=== PATIENT | male | born 1945 | race African-American/Black ===

== ENCOUNTER 2017-03-12 07:03 | Emergency (ER) | payer OTHER ==
[~2017-03-12] VITALS: Ht 160 cm; Wt 69.0 kg
[~2017-03-12 07:03] MED LIST: ALBU1AER INH; ALBU6.7H INH; COMBAER INH; LIPI10TA PO; PRED50 PO; PRIN5TAB PO; STOO100C PO; VENTAER INH
[2017-03-12 07:11] VITALS: BP 185/94; PULSE 122; RESP 21; TEMP 98.2; O2SAT 95
[2017-03-12 07:14] VITALS: BP 185/94; PULSE 110; RESP 24; O2SAT 96
[2017-03-12] MEDS ORDERED: SODIUM CHLORIDE 0.9% FLUSH 10 ML FLUSH IVF PRN (07:15)
[2017-03-12] MEDS ORDERED: methylPREDNISolone SOD SUCC 125 MG/2 ML VIAL IVP ONE (07:15)
[2017-03-12] MEDS ORDERED: PRED5TAB PO (07:22)
[2017-03-12] MEDS ORDERED: LISI-519 PO (07:22)
[2017-03-12] MEDS ORDERED: FLUT1INH7 INH (07:22)
[2017-03-12] MEDS ORDERED: COLA100C3 PO (07:22)
[2017-03-12] MEDS ORDERED: ALBUAER3 INH (07:22)
--- NOTE | 2017-03-12 07:22 | PD ---
HPI Chief Complaint: Respiratory Distress Time Seen by Provider: 07:11 Travel History International Travel<30 days: No Contact w/Intl Traveler<30days: No Traveled to known affect area: No History of Present Illness HPI 71yo M with PMH of COPD on home O2 at night presents to the ED with c/o sob since last night. States he also had some midsternal chest tightness that is intermittent and nonradiating. +Occasional cough. Denies any fever, n/v, abdominal pain, focal weakness or numbness, history of PE/DVT. Pt given duonebs x3 with some improvement. As per EVAC, pt was wheezing. Pt has been here multiple times for COPD exacerbation and states he had been intubated once before. PFSH Past Medical History Arthritis: No Asthma: Yes Autoimmune Disease: No Blood Disorders: No Anxiety: No Depression: No Heart Rhythm Problems: No Cancer: No Cardiovascular Problems: Yes (due to copd) High Cholesterol: Yes Chemotherapy: No Chest Pain: No Congestive Heart Failure: No COPD: Yes Cerebrovascular Accident: No Diabetes: No Diminished Hearing: No Endocrine: No Gastrointestinal Disorders: No GERD: No Glaucoma: No Genitourinary: No Headaches: Yes Hepatitis: No Hiatal Hernia: No Hypertension: Yes Immune Disorder: No Implanted Vascular Access Dvce: No Kidney Stones: No Musculoskeletal: No Neurologic: Yes Psychiatric: No Reproductive: No Respiratory: Yes (COPD) Migraines: Yes Myocardial Infarction: No Radiation Therapy: No Renal Failure: No Seizures: No Sickle Cell Disease: No Sleep Apnea: No Thyroid Disease: No Ulcer: No PNEUMOCCOCAL Vaccine (Year): 2 Past Surgical History Abdominal Surgery: No AICD: No Appendectomy: No Arteriovenous Shunt: No Cardiac Surgery: No Cholecystectomy: No Ear Surgery: No Endocrine Surgery: No Eye Surgery: Yes (CATARACT REMOVAL) Genitourinary Surgery: No Gynecologic Surgery: No Insulin Pump: No Joint Replacement: No Neurologic Surgery: No Oral Surgery: No Pacemaker: No Thoracic Surgery: No Other Surgery: No Social History Alcohol Use: Yes (RARELY) Tobacco Use: No (QUIT 09/2012) Substance Use: No Allergies-Medications (Allergen,Severity, Reaction): Coded Allergies: No Known Allergies (Verified , 03/12/16) Reported Meds & Prescriptions Reported Meds & Active Scripts Active Reported Breo Ellipta Inh (Fluticasone/Vilanterol) 200-25 Mcg/Act Inh 1 Puff INH BID Use daily at the same time. Proair Hfa 8.5 GM Inh (Albuterol Sulfate) 90 Mcg/Act Aer 2 Puff INH Q4-6H PRN 108 mcg/actuation Colace (Docusate Sodium) 100 Mg Cap 100 Mg PO BID PRN Lisinopril 5 Mg Tab 5 Mg PO DAILY Prednisone 5 Mg Tab 5 Mg PO DAILY Review of Systems Except as stated in HPI: all other systems reviewed are Neg Physical Exam Narrative GENERAL: 71yo M in moderate distress. SKIN: Focused skin assessment warm/dry. HEAD: Atraumatic. Normocephalic. EYES: Pupils equal and round. No scleral icterus. No injection or drainage. ENT: No nasal bleeding or discharge. Mucous membranes pink and moist. NECK: Trachea midline. No JVD. CARDIOVASCULAR: Sinus tachycardia in the low 120s. RESPIRATORY: + accessory muscle use. Coarse breath sounds in lower lungs, left > right. GASTROINTESTINAL: Abdomen soft, non-tender, nondistended. MUSCULOSKELETAL: No obvious deformities. No clubbing. No cyanosis. No edema. No calf tenderness. NEUROLOGICAL: Awake and alert. No obvious cranial nerve deficits. Motor grossly within normal limits. Normal speech. PSYCHIATRIC: Appropriate mood and affect; insight and judgment normal. Data Data Last Documented VS Vital Signs Date Time Temp Pulse Resp B/P Pulse Ox O2 Delivery O2 Flow Rate FiO2 03/12/17 09:30 99 25 161/79 99 Nasal Cannula 2 03/12/17 07:11 98.2 Orders Complete Blood Count With Diff (03/12/17 07:11) Basic Metabolic Panel (Bmp) (03/12/17 07:11) B-Type Natriuretic Peptide (03/12/17 07:11) Act Partial Throm Time (Ptt) (03/12/17 07:11) Prothrombin Time / Inr (Pt) (03/12/17 07:11) Magnesium (Mg) (03/12/17 07:11) Ckmb (Isoenzyme) Profile (03/12/17 07:11) Troponin I (03/12/17 07:11) Arterial Blood Gas (Abg) (03/12/17 07:11) Blood Culture (03/12/17 07:11) Iv Access Insert/Monitor (03/12/17 07:11) Electrocardiogram (03/12/17 07:11) Ecg Monitoring (03/12/17 07:11) Oximetry (03/12/17 07:11) Oxygen Administration (03/12/17 07:11) Chest, Single Ap (03/12/17 07:11) Sodium Chloride 0.9% Flush (Ns Flush) (03/12/17 07:15) Methylprednisolone So Succ Inj (Solumedr (03/12/17 07:15) Albuterol Neb (Albuterol Neb) (03/12/17 07:15) Resp Bipap / Cpap Non Invas Vt (03/12/17 07:11) Lactic Acid Sepsis Protocol (03/12/17 07:11) CKMB (03/12/17 08:05) CKMB% (03/12/17 08:05) Labs Laboratory Tests Test 03/12/17 03/12/17 03/12/17 03/12/17 07:20 07:26 07:40 08:05 Blood Gas Puncture Site RT RADIAL Blood Gas Patient Temperature 98.6 Blood Gas HCO3 29 mmol/L Blood Gas Base Excess 3.5 mmol/L Blood Gas Oxygen Saturation 94 % Arterial Blood pH 7.36 Arterial Blood Partial 52 mmHg Pressure CO2 Arterial Blood Partial 78 mmHG Pressure O2 Arterial Blood Oxygen Content 19.8 Vol % Arterial Blood 0.6 % Carboxyhemoglobin Arterial Blood Methemoglobin 0.5 % Blood Gas Hemoglobin 15.0 G/DL Oxygen Delivery Device MASK Blood Gas Liter Flow 7 L/M White Blood Count 5.5 TH/MM3 Red Blood Count 5.40 MIL/MM3 Hemoglobin 14.9 GM/DL Hematocrit 44.8 % Mean Corpuscular Volume 82.9 FL Mean Corpuscular Hemoglobin 27.5 PG Mean Corpuscular Hemoglobin 33.2 % Concent Red Cell Distribution Width 16.5 % Platelet Count 216 TH/MM3 Mean Platelet Volume 8.3 FL Neutrophils (%) (Auto) 35.9 % Lymphocytes (%) (Auto) 46.8 % Monocytes (%) (Auto) 11.8 % Eosinophils (%) (Auto) 4.5 % Basophils (%) (Auto) 1.0 % Neutrophils # (Auto) 2.0 TH/MM3 Lymphocytes # (Auto) 2.6 TH/MM3 Monocytes # (Auto) 0.7 TH/MM3 Eosinophils # (Auto) 0.2 TH/MM3 Basophils # (Auto) 0.1 TH/MM3 CBC Comment DIFF FINAL Differential Comment B-Type Natriuretic Peptide 10 PG/ML Lactic Acid Level 1.3 mmol/L Sodium Level 143 MEQ/L Potassium Level 3.9 MEQ/L Chloride Level 106 MEQ/L Carbon Dioxide Level 33.1 MEQ/L Anion Gap 4 MEQ/L Blood Urea Nitrogen 9 MG/DL Creatinine 1.35 MG/DL Estimat Glomerular Filtration 63 ML/MIN Rate Random Glucose 176 MG/DL Calcium Level 8.5 MG/DL Magnesium Level 2.2 MG/DL Total Creatine Kinase 208 U/L Creatine Kinase MB 2.7 NG/ML Troponin I LESS THAN 0.02 NG/ML Test 03/12/17 08:11 Prothrombin Time 10.8 SEC Prothromb Time International 1.0 RATIO Ratio Activated Partial 27.3 SEC Thromboplast Time MDM Medical Decision Making Medical Screen Exam Complete: Yes Emergency Medical Condition: Yes Interpretation(s) EKG: Sinus tachycardia at 124bpm. Normal axis. LVH. +PVC. Diffuse ST segment depression and T wave inversion that is unchanged from previous EKG 2015. Laboratory Tests Test 03/12/17 03/12/17 03/12/17 03/12/17 07:20 07:26 07:40 08:05 Blood Gas Puncture Site RT RADIAL Blood Gas Patient Temperature 98.6 Blood Gas HCO3 29 mmol/L (22-26) Blood Gas Base Excess 3.5 mmol/L (-2-2) Blood Gas Oxygen Saturation 94 % (90-100) Arterial Blood pH 7.36 (7.380-7.420) Arterial Blood Partial 52 mmHg (38-42) Pressure CO2 Arterial Blood Partial 78 mmHG Pressure O2 (61-120) Arterial Blood Oxygen Content 19.8 Vol % (12.0-20.0) Arterial Blood 0.6 % (0-4) Carboxyhemoglobin Arterial Blood Methemoglobin 0.5 % (0-2) Blood Gas Hemoglobin 15.0 G/DL (12.0-16.0) Oxygen Delivery Device MASK Blood Gas Liter Flow 7 L/M White Blood Count 5.5 TH/MM3 (4.0-11.0) Red Blood Count 5.40 MIL/MM3 (4.50-5.90) Hemoglobin 14.9 GM/DL (13.0-17.0) Hematocrit 44.8 % (39.0-51.0) Mean Corpuscular Volume 82.9 FL (80.0-100.0) Mean Corpuscular Hemoglobin 27.5 PG (27.0-34.0) Mean Corpuscular Hemoglobin 33.2 % Concent (32.0-36.0) Red Cell Distribution Width 16.5 % (11.6-17.2) Platelet Count 216 TH/MM3 (150-450) Mean Platelet Volume 8.3 FL (7.0-11.0) Neutrophils (%) (Auto) 35.9 % (16.0-70.0) Lymphocytes (%) (Auto) 46.8 % (9.0-44.0) Monocytes (%) (Auto) 11.8 % (0.0-8.0) Eosinophils (%) (Auto) 4.5 % (0.0-4.0) Basophils (%) (Auto) 1.0 % (0.0-2.0) Neutrophils # (Auto) 2.0 TH/MM3 (1.8-7.7) Lymphocytes # (Auto) 2.6 TH/MM3 (1.0-4.8) Monocytes # (Auto) 0.7 TH/MM3 (0-0.9) Eosinophils # (Auto) 0.2 TH/MM3 (0-0.4) Basophils # (Auto) 0.1 TH/MM3 (0-0.2) CBC Comment DIFF FINAL Differential Comment B-Type Natriuretic Peptide 10 PG/ML (0-100) Lactic Acid Level 1.3 mmol/L (0.4-2.0) Sodium Level 143 MEQ/L (136-145) Potassium Level 3.9 MEQ/L (3.5-5.1) Chloride Level 106 MEQ/L (98-107) Carbon Dioxide Level 33.1 MEQ/L (21.0-32.0) Anion Gap 4 MEQ/L (5-15) Blood Urea Nitrogen 9 MG/DL (7-18) Creatinine 1.35 MG/DL (0.60-1.30) Estimat Glomerular Filtration 63 ML/MIN (>89) Rate Random Glucose 176 MG/DL (74-106) Calcium Level 8.5 MG/DL (8.5-10.1) Magnesium Level 2.2 MG/DL (1.5-2.5) Total Creatine Kinase 208 U/L (39-308) Creatine Kinase MB 2.7 NG/ML (0.5-3.6) Troponin I LESS THAN 0.02 NG/ML (0.02-0.05) Test 03/12/17 08:11 Prothrombin Time 10.8 SEC (9.8-11.6) Prothromb Time International 1.0 RATIO Ratio Activated Partial 27.3 SEC Thromboplast Time (24.3-30.1) Last Impressions Chest X-Ray 03/12/17 0711 Signed Impressions: Service Date/Time: February 07:57 - CONCLUSION: No acute cardiopulmonary disease. Edmundo Mtz MD Differential Diagnosis COPD exacerbation vs. pneumonia vs. ACS Narrative Course 71yo M with COPD here with sob. Pt initially was tachypneic so BIPAP was ordered. However, pt improved after nebulizer and did not need BIPAP. Pt given albuterol neb x3 and methylprednisolone 125mg IV. Labs reviewed, no leukocytosis. Creatinine mildly increased at 1.35. Troponin negative. BNP 10. Lactic acid 1.3. ABG showed compensated respiratory acidosis. Pt reevaluated at bedside and feels much better. States sob has resolved. Pt also states chest tightness has improved and that he always has this tightness with COPD exacerbation. Pt saturating at 93% on RA and wants to go home. Pt has oxygen at home that he uses at night. Tachycardia has also resolved, HR 99bpm now. Return precautions given. Diagnosis Primary Impression: COPD exacerbation Patient Instructions: General Instructions Departure Forms: Tests/Procedures Additional Instructions: Please follow up with your PMD in 1-2 days. Return to the ED if symptoms worsen. Med/Other Pt SpecificInfo: Prescription(s) given Scripts Albuterol 18 GM Inh (Ventolin Hfa 18 GM Inh)90 Mcg/Act Aer2 Puff INH Q4H PRN ( SHORTNESS OF BREATH) #1 INHALER Ref 0 Prov:ToscanoJessica jackson 03/12/17 Prednisone 20 Mg Tab20 Mg PO BID 5 Days Ref 0 Prov:Jessica Toscano 03/12/17 Disposition: 01 DISCHARGE HOME Condition: Stable Jessica Toscano Mar 12, 2017 07:22
[2017-03-12 07:32] LABS: BLOOD GAS BASE EXCESS 3.5 mmol/L (-2-2); BLOOD GAS CARBOXYHEMOGLOBIN 0.6 % (0-4); BLOOD GAS HCO3 29 mmol/L (22-26); BLOOD GAS METHEMOGLOBIN 0.5 % (0-2); BLOOD GAS O2 HGB SATURATION 94 % (90-100); BLOOD GAS OXYGEN CONTENT 19.8 Vol % (12.0-20.0); BLOOD GAS PCO2 52 mmHg (38-42); BLOOD GAS PO2 78 mmHG (61-120); CRITICAL VALUE YES; DRAW SITE RT RADIAL; LITER FLOW 7 L/M; NUMBER OF ARTERIAL PUNCTURES 1; OXYGEN DEVICE MASK; STAT YES; TEMP CORR TO 98.6; ULNAR PULSE PRESENT
[2017-03-12 07:37] LABS: BASOPHIL # 0.1 TH/MM3 (0-0.2); EOSINOPHIL # 0.2 TH/MM3 (0-0.4); EOSINOPHIL % 4.5 % (0.0-4.0); HEMATOCRIT 44.8 % (39.0-51.0); HEMO FLAGS DIFF FINAL; LYMPH % 46.8 % (9.0-44.0); LYMPHOCYTE # 2.6 TH/MM3 (1.0-4.8); MEAN CELL VOLUME 82.9 FL (80.0-100.0); MEAN CORPUSCULAR HEMOGLOBIN 27.5 PG (27.0-34.0); MEAN CORPUSCULAR HGB CONC 33.2 % (32.0-36.0); MONO % 11.8 % (0.0-8.0); NEUT % 35.9 % (16.0-70.0); PLATELET COUNT 216 TH/MM3 (150-450); RED CELL DISTRIBUTION WIDTH 16.5 % (11.6-17.2); WHITE BLOOD COUNT 5.5 TH/MM3 (4.0-11.0)
[2017-03-12] MEDS: RESP: ALBUTEROL 2.5 MG/3 ML NEB (SCH) INH ×2 (07:38→07:39)
[2017-03-12 07:40] VITALS: O2SAT 100
[2017-03-12 07:50] VITALS: BP 167/74; PULSE 110; RESP 24; O2SAT 99
[2017-03-12 08:26] LABS: APTT (PATIENT) 27.3 SEC (24.3-30.1); PROTHROMBIN TIME - PATIENT 10.8 SEC (9.8-11.6)
[2017-03-12 08:37] VITALS: BP 162/77; PULSE 106; RESP 24; O2SAT 97
[2017-03-12 08:38] LABS: ANION GAP 4 MEQ/L (5-15); BICARBONATE 33.1 MEQ/L (21.0-32.0); BLOOD UREA NITROGEN 9 MG/DL (7-18); CHLORIDE 106 MEQ/L (98-107); CREATINE KINASE 208 U/L (39-308); GLOMERULAR FILTRATION RATE 63 ML/MIN (>89); MAGNESIUM 2.2 MG/DL (1.5-2.5); POTASSIUM 3.9 MEQ/L (3.5-5.1); SODIUM (NA) 143 MEQ/L (136-145)
--- NOTE | 2017-03-12 08:42 | RADRPT ---
EXAM DATE/TIME: 03/12/2017 07:57 [facility] COMPARISON: CHEST SINGLE AP, March 12, 2016, 19:27. INDICATIONS : Shortness of breath, chest pain. MEDICAL HISTORY : Hypertension. Chronic obstructive pulmonary disease. Asthma. SURGICAL HISTORY : None. ENCOUNTER: Initial ACUITY: 2 days PAIN SCORE: 10/10 LOCATION: Right chest FINDINGS: The heart and mediastinal structures are normal. The pulmonary vascular pattern is normal. The lung s are clear. CONCLUSION: No acute cardiopulmonary disease. Edmundo Mtz MD on March 12, 2017 at 8:19 Board Certified Radiologist. This report was verified electronically.
[2017-03-12 08:51] LABS: CKMB 2.7 NG/ML (0.5-3.6)
[2017-03-12 09:30] VITALS: BP 161/79; PULSE 99; RESP 25; O2SAT 99
[2017-03-12] MEDS ORDERED: PRED20 PO (10:07)
[2017-03-12] MEDS ORDERED: VENTAER INH (10:07)
--- NOTE | 2017-03-12 12:25 | EKG ---
Date Performed: 03/12/2017 Time Performed: 07:14:40 PTAGE: 71 years EKG: SINUS TACHYCARDIA WITH FREQUENT SUPRAVENTRICULAR PREMATURE COMPLEXES LEFT VENTRICULAR HYPER TROPHY AND ST-T CHANGE ABNORMAL ECG Compared to prior tracing no significant change PREVIOUS TRACING 03/12/2016 18.28.08 DOCTOR: Jimmy Mendoza Interpretating Date/Time 03/12/2017 12:24:18
== END 2017-03-12 10:22 | disposition home or self-care (01) ==
LOC: NEPC 07:03
DX: J44.1 Chronic obstructive pulmonary disease with (acute) exacerbation (principal); R94.31 Abnormal electrocardiogram [ECG] [EKG]; I10 Essential (primary) hypertension
CPT/HCPCS: 36600; 71010; 80048; 82550; 82552; 82805; 83605; 83735; 83880; 84484; 85025; 85610; 85730; 87040; 93005; 94640; 94664; 96374; 99284; J2930; J7613

== ENCOUNTER 2017-04-10 10:42 | Observation (INO) | payer OTHER ==
[2017-04-10] VITALS (9 sets, daily range): BP systolic 144–188; BP diastolic 67–93; PULSE 20–116; RESP 16–26; TEMP 98.1–99.2; O2SAT 93–98
[~2017-04-10] VITALS: Ht 160 cm; Wt 78.0 kg
[~2017-04-10 10:42] MED LIST changes: -ALBU1AER INH; -ALBU6.7H INH; +ALBUAER3 INH; +COLA100C3 PO; -COMBAER INH; +FLUT1INH7 INH; -LIPI10TA PO; +LISI-519 PO; +PRED20 PO; -PRED50 PO; +PRED5TAB PO; -PRIN5TAB PO; -STOO100C PO
[2017-04-10] MEDS ORDERED: RESP: ALBUTEROL 2.5 MG/IPRATROPIUM 0.5 MG NEB (SCH) INH ONE (11:00)
[2017-04-10] MEDS ORDERED: methylPREDNISolone SOD SUCC 125 MG/2 ML VIAL IVP ONE (11:00)
[2017-04-10] MEDS ORDERED: SODIUM CHLORIDE 0.9% FLUSH 10 ML FLUSH IVF PRN (11:00)
--- NOTE | 2017-04-10 11:00 | PD ---
HPI Chief Complaint: Shortness of breath Time Seen by Provider: 10:52 Travel History International Travel<30 days: No Contact w/Intl Traveler<30days: No Traveled to known affect area: No History of Present Illness HPI This is a 71-year-old gentleman with a history of COPD, renal insufficiency, who presents today with complaints of shortness of breath and wheezing. When paramedics arrived at his workplace, they found him to be severely short of breath with diffuse respiratory wheezes. They started one nebulizer treatment and transported him ALS here. He denies any cough. He does report chest pressure in his right upper chest. There is no nausea or diaphoresis. He states he's been using his nebulizers however despite that he still having shortness of breath. PFSH Past Medical History Arthritis: No Asthma: Yes Autoimmune Disease: No Blood Disorders: No Anxiety: No Depression: No Heart Rhythm Problems: No Cancer: No Cardiovascular Problems: Yes (due to copd) High Cholesterol: Yes Chemotherapy: No Chest Pain: No Congestive Heart Failure: No COPD: Yes Cerebrovascular Accident: No Diabetes: No Diminished Hearing: No Endocrine: No Gastrointestinal Disorders: No GERD: No Glaucoma: No Genitourinary: No Headaches: Yes Hepatitis: No Hiatal Hernia: No Hypertension: Yes Immune Disorder: No Implanted Vascular Access Dvce: No Kidney Stones: No Musculoskeletal: No Neurologic: Yes Psychiatric: No Reproductive: No Respiratory: Yes (COPD) Migraines: Yes Myocardial Infarction: No Radiation Therapy: No Renal Failure: No Seizures: No Sickle Cell Disease: No Sleep Apnea: No Thyroid Disease: No Ulcer: No PNEUMOCCOCAL Vaccine (Year): 2 Past Surgical History Abdominal Surgery: No AICD: No Appendectomy: No Arteriovenous Shunt: No Cardiac Surgery: No Cholecystectomy: No Ear Surgery: No Endocrine Surgery: No Eye Surgery: Yes (CATARACT REMOVAL BILATERAL) Genitourinary Surgery: No Gynecologic Surgery: No Insulin Pump: No Joint Replacement: No Neurologic Surgery: No Oral Surgery: No Pacemaker: No Thoracic Surgery: No Other Surgery: No Social History Alcohol Use: Yes (OCCASIONALLY) Tobacco Use: No (QUIT 09/2012) Substance Use: No Allergies-Medications (Allergen,Severity, Reaction): Coded Allergies: No Known Allergies (Verified , 03/12/16) Reported Meds & Prescriptions Reported Meds & Active Scripts Active Ventolin Hfa 18 GM Inh (Albuterol Sulfate) 90 Mcg/Act Aer 2 Puff INH Q4H PRN Prednisone 20 Mg Tab 20 Mg PO BID 5 Days Reported Breo Ellipta Inh (Fluticasone/Vilanterol) 200-25 Mcg/Act Inh 1 Puff INH BID Use daily at the same time. Proair Hfa 8.5 GM Inh (Albuterol Sulfate) 90 Mcg/Act Aer 2 Puff INH Q4-6H PRN 108 mcg/actuation Colace (Docusate Sodium) 100 Mg Cap 100 Mg PO BID PRN Lisinopril 5 Mg Tab 5 Mg PO DAILY Prednisone 5 Mg Tab 5 Mg PO DAILY Review of Systems Except as stated in HPI: all other systems reviewed are Neg General / Constitutional: No: Fever, Chills HENT: No: Headaches, Vertigo, Lightheadedness Cardiovascular: Positive: Chest Pain or Discomfort, No: Palpitations Respiratory: Positive: Shortness of Breath, Wheezing, No: Cough Gastrointestinal: No: Nausea, Vomiting, Abdominal Pain Musculoskeletal: No: Weakness, Pain Neurologic: No: Weakness, Dizziness, Headache Physical Exam Narrative GENERAL: Well-developed well-nourished gentleman with obvious respiratory discomfort. SKIN: Focused skin assessment warm/dry. HEAD: Atraumatic. Normocephalic. EYES: No scleral icterus. No injection or drainage. ENT: No nasal bleeding or discharge. Mucous membranes pink and moist. NECK: Trachea midline. Supple. CARDIOVASCULAR: Tachycardic with a rate in the low 100s. 110 on my examination. No obvious ectopy or murmurs appreciated. RESPIRATORY: Decreased breath sounds bilaterally. Questionable fine Rales heard at the bases. Wheezing heard in the upper airways on expiration. GASTROINTESTINAL: Abdomen soft, non-tender, nondistended. MUSCULOSKELETAL: No obvious deformities. No clubbing. No cyanosis. No edema. NEUROLOGICAL: Awake and alert. No obvious cranial nerve deficits. Motor grossly within normal limits. Normal speech. PSYCHIATRIC: Appropriate mood and affect; insight and judgment normal. Data Data Last Documented VS Vital Signs Date Time Temp Pulse Resp B/P Pulse Ox O2 Delivery O2 Flow Rate FiO2 04/10/17 11:01 114 04/10/17 11:01 98 Nasal Cannula 2 04/10/17 10:53 98.1 26 179/85 Orders Complete Blood Count With Diff (04/10/17 10:52) Comprehensive Metabolic Panel (04/10/17 10:52) B-Type Natriuretic Peptide (04/10/17 10:52) Act Partial Throm Time (Ptt) (04/10/17 10:52) Prothrombin Time / Inr (Pt) (04/10/17 10:52) Magnesium (Mg) (04/10/17 10:52) Ckmb (Isoenzyme) Profile (04/10/17 10:52) Troponin I (04/10/17 10:52) Arterial Blood Gas (Abg) (04/10/17 10:52) Iv Access Insert/Monitor (04/10/17 10:52) Electrocardiogram (04/10/17 10:52) Ecg Monitoring (04/10/17 10:52) Oximetry (04/10/17 10:52) Oxygen Administration (04/10/17 10:52) Chest, Single Ap (04/10/17 10:52) Sodium Chloride 0.9% Flush (Ns Flush) (04/10/17 11:00) Methylprednisolone So Succ Inj (Solumedr (04/10/17 11:00) Albuterol-Ipratropium Neb (Duoneb Neb) (04/10/17 11:00) Albuterol Neb (Albuterol Neb) (04/10/17 11:00) CKMB (04/10/17 11:10) CKMB% (04/10/17 11:10) Admit Order (Ed Use Only) (04/10/17 13:04) Labs Laboratory Tests Test 04/10/17 04/10/17 11:10 11:40 White Blood Count 5.7 TH/MM3 Red Blood Count 5.40 MIL/MM3 Hemoglobin 14.6 GM/DL Hematocrit 45.6 % Mean Corpuscular Volume 84.3 FL Mean Corpuscular Hemoglobin 27.1 PG Mean Corpuscular Hemoglobin 32.1 % Concent Red Cell Distribution Width 15.6 % Platelet Count 211 TH/MM3 Mean Platelet Volume 8.4 FL Neutrophils (%) (Auto) 64.9 % Lymphocytes (%) (Auto) 21.5 % Monocytes (%) (Auto) 10.6 % Eosinophils (%) (Auto) 2.6 % Basophils (%) (Auto) 0.4 % Neutrophils # (Auto) 3.7 TH/MM3 Lymphocytes # (Auto) 1.2 TH/MM3 Monocytes # (Auto) 0.6 TH/MM3 Eosinophils # (Auto) 0.1 TH/MM3 Basophils # (Auto) 0.0 TH/MM3 CBC Comment DIFF FINAL Differential Comment Prothrombin Time 10.7 SEC Prothromb Time International 1.0 RATIO Ratio Activated Partial 27.9 SEC Thromboplast Time Sodium Level 140 MEQ/L Potassium Level 3.6 MEQ/L Chloride Level 104 MEQ/L Carbon Dioxide Level 25.6 MEQ/L Anion Gap 10 MEQ/L Blood Urea Nitrogen 8 MG/DL Creatinine 1.26 MG/DL Estimat Glomerular Filtration 68 ML/MIN Rate Random Glucose 207 MG/DL Calcium Level 8.8 MG/DL Magnesium Level 2.5 MG/DL Total Bilirubin 0.6 MG/DL Aspartate Amino Transf 17 U/L (AST/SGOT) Alanine Aminotransferase 29 U/L (ALT/SGPT) Alkaline Phosphatase 55 U/L Total Creatine Kinase 346 U/L Creatine Kinase MB 4.7 NG/ML Creatine Kinase MB % 1.4 % Troponin I LESS THAN 0.02 NG/ML Total Protein 7.4 GM/DL Albumin 3.8 GM/DL Blood Gas Puncture Site RT RADIAL Blood Gas Patient Temperature 98.6 Blood Gas HCO3 24 mmol/L Blood Gas Base Excess -0.2 mmol/L Blood Gas Oxygen Saturation 91 % Arterial Blood pH 7.38 Arterial Blood Partial 41 mmHg Pressure CO2 Arterial Blood Partial 63 mmHG Pressure O2 Arterial Blood Oxygen Content 19.0 Vol % Arterial Blood 0.9 % Carboxyhemoglobin Arterial Blood Methemoglobin 0.5 % Blood Gas Hemoglobin 14.9 G/DL Oxygen Delivery Device NASAL CANNULA Blood Gas Inspired Oxygen 21 % MDM Medical Decision Making Medical Screen Exam Complete: Yes Emergency Medical Condition: Yes Differential Diagnosis COPD exacerbation versus CHF exacerbation versus ACS Narrative Course 71-year-old male with history of COPD, presents with COPD exacerbation. The patient has had significant shortness of breath and wheezing. When he arrived here he was extremely tight and moving very little air. He was slightly diaphoretic and pale. Patient is received 125 mg sign Medrol. This also received 3 nebulizer treatments. He still disconnect. Given this, I feel it is in his best interest to be admitted under observation for continuous nebulizers and Solu-Medrol. The case was discussed with Dr. Dyllan Bullard, who is agreed for the observation admission. Diagnosis Primary Impression: COPD exacerbation Admitting Information Admitting Physician Requests: Observation Jonatan Valiente MD April 10, 2017 11:00
[2017-04-10 11:23] LABS: AUTOMATED NEUTROPHIL # 3.7 TH/MM3 (1.8-7.7); BASOPHIL % 0.4 % (0.0-2.0); EOSINOPHIL # 0.1 TH/MM3 (0-0.4); EOSINOPHIL % 2.6 % (0.0-4.0); HEMATOCRIT 45.6 % (39.0-51.0); HEMO FLAGS DIFF FINAL; LYMPH % 21.5 % (9.0-44.0); LYMPHOCYTE # 1.2 TH/MM3 (1.0-4.8); MEAN CELL VOLUME 84.3 FL (80.0-100.0); MEAN CORPUSCULAR HEMOGLOBIN 27.1 PG (27.0-34.0); MEAN CORPUSCULAR HGB CONC 32.1 % (32.0-36.0); MONO % 10.6 % (0.0-8.0); NEUT % 64.9 % (16.0-70.0); PLATELET COUNT 211 TH/MM3 (150-450); RED CELL DISTRIBUTION WIDTH 15.6 % (11.6-17.2); WHITE BLOOD COUNT 5.7 TH/MM3 (4.0-11.0)
--- NOTE | 2017-04-10 11:30 | RADRPT ---
EXAM DATE/TIME: 04/10/2017 10:49 [facility] COMPARISON: CHEST SINGLE AP, March 12, 2017, 7:57. INDICATIONS : Short of breath, chest pain.. MEDICAL HISTORY : Chronic obstructive pulmonary disease. SURGICAL HISTORY : None. ENCOUNTER: Initial ACUITY: 1 day PAIN SCORE: 5/10 LOCATION: Bilateral chest FINDINGS: The heart is at the upper limits of normal in size. There are mild chronic interstitial changes withi n the pulmonary parenchyma. This is stable compared to previous examination. The visualized bony stru ctures are grossly intact. CONCLUSION: 1. Chronic appearing interstitial change. The heart is at the upper limits of normal in size. Stable compared to previous. Bruno Thompson MD on April 10, 2017 at 11:19 Board Certified Radiologist. This report was verified electronically.
[2017-04-10 11:33] LABS: APTT (PATIENT) 27.9 SEC (24.3-30.1); PROTHROMBIN TIME - PATIENT 10.7 SEC (9.8-11.6)
[2017-04-10 11:43] LABS: ANION GAP 10 MEQ/L (5-15); AST (GOT) 17 U/L (15-37); BICARBONATE 25.6 MEQ/L (21.0-32.0); BLOOD UREA NITROGEN 8 MG/DL (7-18); CHLORIDE 104 MEQ/L (98-107); GLOMERULAR FILTRATION RATE 68 ML/MIN (>89); MAGNESIUM 2.5 MG/DL (1.5-2.5); POTASSIUM 3.6 MEQ/L (3.5-5.1); SODIUM (NA) 140 MEQ/L (136-145)
[2017-04-10 11:48] LABS: ALKALINE PHOSPHATASE 55 U/L (45-117); ALT (GPT) 29 U/L (12-78); CREATINE KINASE 346 U/L (39-308); TOTAL BILIRUBIN ADULT 0.6 MG/DL (0.2-1.0)
[2017-04-10 11:49] LABS: BLOOD GAS BASE EXCESS -0.2 mmol/L (-2-2); BLOOD GAS CARBOXYHEMOGLOBIN 0.9 % (0-4); BLOOD GAS HCO3 24 mmol/L (22-26); BLOOD GAS METHEMOGLOBIN 0.5 % (0-2); BLOOD GAS O2 HGB SATURATION 91 % (90-100); BLOOD GAS PCO2 41 mmHg (38-42); BLOOD GAS PO2 63 mmHG (61-120); BLOOD GAS TOTAL HGB 14.9 G/DL (12.0-16.0); CRITICAL VALUE NO; TEMP CORR TO 98.6
[2017-04-10 11:50] LABS: DRAW SITE RT RADIAL; FIO2 21 %; NUMBER OF ARTERIAL PUNCTURES 1; OXYGEN DEVICE NASAL CANNULA; STAT YES; ULNAR PULSE PRESENT
[2017-04-10] MEDS: RESP: ALBUTEROL 2.5 MG/3 ML NEB (SCH) INH ×2 (11:57→11:58)
[2017-04-10 12:00] LABS: CKMB 4.7 NG/ML (0.5-3.6)
[2017-04-10] MEDS ORDERED: RESP: ALBUTEROL 2.5 MG/3 ML NEB (PRN) INH (13:30)
[2017-04-10] MEDS ORDERED: DEXTROSE 50% IN WATER 50 ML VIAL(D50) IV PRN (13:30)
[2017-04-10] MEDS ORDERED: GLUCAGON 1 MG/ML VIAL OTHER PRN (13:30)
[2017-04-10] MEDS ORDERED: SODIUM CHLORIDE 0.9% FLUSH 10 ML FLUSH IV FLUSH PRN (13:30)
--- NOTE | 2017-04-10 13:36 | HHI.HP ---
[facility] Kassie Cordova DO Admission Diagnosis COPD exacerbation, dyspnea Diagnoses: (1) COPD exacerbation (2) Hyperglycemia Chief Complaint: Difficulty breathing Travel History International Travel<30 Days: No Contact w/Intl Traveler <30 Da: No Traveled to Known Affected Are: No History of Present Illness The patient is a 71-year-old male with history of COPD who presented to the emergency department with complaint of worsening shortness of breath. Symptoms started this morning. He states that yesterday he felt normal. He reports nonproductive cough. He has chest pain that is worse with shortness of breath. The pain is on the right side of his chest. It does not radiate. He has been using albuterol at home, but has not relieved his symptoms. Review of Systems Constitutional: DENIES: Fever, Chills, Night Sweats Eyes: DENIES: Blurred vision, Vision loss Ears, nose, mouth, throat: DENIES: Hearing loss Respiratory: COMPLAINS OF: Cough, Wheezing, Shortness of breath, DENIES: Sputum production Cardiovascular: COMPLAINS OF: Chest pain (as discussed in history of present illness), DENIES: Palpitations, Dyspnea on Exertion, Lower Extremity Edema Gastrointestinal: DENIES: Abdominal pain, Constipation, Diarrhea, Nausea, Vomiting Genitourinary: DENIES: Urinary frequency, Urinary incontinence, Urgency, Hematuria, Dysuria, Nocturia Musculoskeletal: DENIES: Joint pain, Muscle aches Integumentary: DENIES: Pruritus, Rash Hematologic/lymphatic: DENIES: Bruising Neurologic: DENIES: Headache Past Family Social History Past Medical History COPD Hypertension Past Surgical History Bilateral cataract surgery Reported Medications Ventolin Hfa 18 GM Inh (Albuterol Sulfate) 90 Mcg/Act Aer 2 Puff INH Q4H PRN Prednisone 20 Mg Tab 20 Mg PO BID 5 Days Breo Ellipta Inh (Fluticasone/Vilanterol) 200-25 Mcg/Act Inh 1 Puff INH BID Use daily at the same time. Proair Hfa 8.5 GM Inh (Albuterol Sulfate) 90 Mcg/Act Aer 2 Puff INH Q4-6H PRN 108 mcg/actuation Colace (Docusate Sodium) 100 Mg Cap 100 Mg PO BID PRN Lisinopril 5 Mg Tab 5 Mg PO DAILY Prednisone 5 Mg Tab 5 Mg PO DAILY Allergies: Coded Allergies: No Known Allergies (Verified , 03/12/16) Family History Mother had cancer. Social History Quit smoking 4 years ago. Had smoked one pack per day for many years. Denies recent alcohol use. Denies illicit drug use. Physical Exam Vital Signs Vital Signs Date Time Temp Pulse Resp B/P Pulse Ox O2 Delivery O2 Flow Rate FiO2 04/10/17 11:01 114 04/10/17 11:01 98 Nasal Cannula 2 04/10/17 10:53 98.1 116 26 179/85 96 Physical Exam GENERAL: Well-nourished, well-developed male in no acute distress. HEENT: Normocephalic, atraumatic. Pupils equal, round and reactive. Extraocular movements intact. No scleral icterus. No injection or drainage. Oropharynx is clear. Mucous membranes are moist. CARDIOVASCULAR: Regular rate and rhythm without murmurs, gallops, or rubs. RESPIRATORY: Decreased air movement throughout. Occasional expiratory wheezing noted. GASTROINTESTINAL: Abdomen soft, non-tender, nondistended. EXTREMITIES: No lower extremity edema. No calf tenderness. PSYCH: Alert and oriented x 3. Laboratory Laboratory Tests Test 04/10/17 04/10/17 11:10 11:40 White Blood Count 5.7 Red Blood Count 5.40 Hemoglobin 14.6 Hematocrit 45.6 Mean Corpuscular Volume 84.3 Mean Corpuscular Hemoglobin 27.1 Mean Corpuscular Hemoglobin 32.1 Concent Red Cell Distribution Width 15.6 Platelet Count 211 Mean Platelet Volume 8.4 Neutrophils (%) (Auto) 64.9 Lymphocytes (%) (Auto) 21.5 Monocytes (%) (Auto) 10.6 Eosinophils (%) (Auto) 2.6 Basophils (%) (Auto) 0.4 Neutrophils # (Auto) 3.7 Lymphocytes # (Auto) 1.2 Monocytes # (Auto) 0.6 Eosinophils # (Auto) 0.1 Basophils # (Auto) 0.0 CBC Comment DIFF FINAL Differential Comment Prothrombin Time 10.7 Prothromb Time International 1.0 Ratio Activated Partial 27.9 Thromboplast Time Sodium Level 140 Potassium Level 3.6 Chloride Level 104 Carbon Dioxide Level 25.6 Anion Gap 10 Blood Urea Nitrogen 8 Creatinine 1.26 Estimat Glomerular Filtration 68 Rate Random Glucose 207 Calcium Level 8.8 Magnesium Level 2.5 Total Bilirubin 0.6 Aspartate Amino Transf 17 (AST/SGOT) Alanine Aminotransferase 29 (ALT/SGPT) Alkaline Phosphatase 55 Total Creatine Kinase 346 Creatine Kinase MB 4.7 Creatine Kinase MB % 1.4 Troponin I LESS THAN 0.02 Total Protein 7.4 Albumin 3.8 Blood Gas Puncture Site RT RADIAL Blood Gas Patient Temperature 98.6 Blood Gas HCO3 24 Blood Gas Base Excess -0.2 Blood Gas Oxygen Saturation 91 Arterial Blood pH 7.38 Arterial Blood Partial 41 Pressure CO2 Arterial Blood Partial 63 Pressure O2 Arterial Blood Oxygen Content 19.0 Arterial Blood 0.9 Carboxyhemoglobin Arterial Blood Methemoglobin 0.5 Blood Gas Hemoglobin 14.9 Oxygen Delivery Device NASAL CANNULA Blood Gas Inspired Oxygen 21 Result Diagram: 04/10/17 1110 04/10/17 1110 Imaging Last Impressions Chest X-Ray 04/10/17 1052 Signed Impressions: Service Date/Time: Monday, April 10, 2017 10:49 - CONCLUSION: 1. Chronic appearing interstitial change. The heart is at the upper limits of normal in size. Stable compared to previous. Bruno Thompson MD Assessment and Plan Assessment and Plan 1. COPD exacerbation: Continue steroids, bronchodilators, supplemental oxygen. Patient is on oxygen at home. He uses 2 L at night, but does not use supplemental oxygen during the day. 2. Hypertension: Continue lisinopril. Vasotec as needed. 3. Hyperglycemia: Patient denies history of diabetes. He does take prednisone, which could be contributing to his elevated blood sugar. Monitor Accu-Cheks and cover with sliding scale insulin. Check hemoglobin A1c. 4. DVT prophylaxis: Heparin, SCDs, JOSE ANTONIO venegas. Ray Bullard MD April 10, 2017 13:36
[2017-04-10] MEDS: HEPARIN SODIUM - SQ 10,000 UNITS/ML VIAL SQ SCH ×2 (14:30→21:11)
[2017-04-10] MEDS: RESP: ALBUTEROL 2.5 MG/IPRATROPIUM 0.5 MG NEB (SCH) INH ×2 (15:55→21:24)
[2017-04-10] MEDS: methylPREDNISolone SOD SUCC 125 MG/2 ML VIAL IVP SCH ×2 (17:01→21:12)
[2017-04-10 17:11] LABS: HEMOGLOBIN A1a 0.6 %; HEMOGLOBIN A1b 2.2 %; HEMOGLOBIN Ao 81.9 %; HEMOGLOBIN P3 4.1 %
[2017-04-10] MEDS: INSULIN ASPART SUPPLEMENTAL SCALE SQ SCH ×2 (17:49→21:15)
--- NOTE | 2017-04-10 20:53 | EKG ---
Date Performed: 04/10/2017 Time Performed: 10:53:24 PTAGE: 71 years EKG: SINUS TACHYCARDIA POSSIBLE LEFT ATRIAL ENLARGEMENT LEFT VENTRICULAR HYPERTROPHY AND ST-T CH KARTIK ABNORMAL ECG PREVIOUS TRACING : 03/12/2017 07.14 Compared to prior tracing no significant change DOCTOR: Rambo Roche Interpretating Date/Time 04/10/2017 20:52:35
[2017-04-10] MEDS: SODIUM CHLORIDE 0.9% FLUSH 10 ML FLUSH IV FLUSH SCH (21:11)
[2017-04-11] VITALS (9 sets, daily range): BP systolic 135–154; BP diastolic 59–79; PULSE 97–111; RESP 18–19; TEMP 95.5–98.6; O2SAT 87–98
[2017-04-11] MEDS: RESP: ALBUTEROL 2.5 MG/IPRATROPIUM 0.5 MG NEB (SCH) INH ×4 (03:58→21:35)
[2017-04-11 04:48] LABS: BICARBONATE 23.6 MEQ/L (21.0-32.0); POTASSIUM 4.3 MEQ/L (3.5-5.1)
[2017-04-11] MEDS: methylPREDNISolone SOD SUCC 125 MG/2 ML VIAL IVP SCH ×4 (05:38→23:06)
[2017-04-11] MEDS: INSULIN ASPART SUPPLEMENTAL SCALE SQ SCH ×4 (05:38→21:00)
[2017-04-11] MEDS: HEPARIN SODIUM - SQ 10,000 UNITS/ML VIAL SQ SCH ×3 (05:38→23:07)
[2017-04-11] MEDS ORDERED: BREO ELLIPTA INH SCH (09:00)
[2017-04-11] MEDS: AZITHROMYCIN 250 MG TAB PO SCH (09:57)
[2017-04-11] MEDS: SODIUM CHLORIDE 0.9% FLUSH 10 ML FLUSH IV FLUSH SCH ×2 (10:00→23:07)
--- NOTE | 2017-04-11 12:03 | HHI.PR ---
Subjective Remarks Follow up for COPD exacerbation. The patient reports slight improvement in his breathing overnight however still short of breath, worse with exertion. Also reports a dry nonproductive cough. Denies fevers/chills. He still feels as though he is wheezing. He went without his oxygen all morning however while he was up talking with visitors, RT checked O2 sat which was 87% on room air therefore he was placed on oxygen. The patient does have a nebulizer machine at home but he believes he is out of the solution. He only has an albuterol rescue inhaler. He has no other medical complaints at this time. Objective Vitals Vital Signs Date Time Temp Pulse Resp B/P Pulse Ox O2 Delivery O2 Flow Rate FiO2 04/11/17 11:48 98.6 111 18 154/71 95 04/11/17 07:31 95.5 106 19 140/69 94 04/11/17 04:03 92 21 04/11/17 03:20 98.2 99 19 138/79 93 04/11/17 00:30 98.4 97 19 135/78 94 04/10/17 21:24 94 21 04/10/17 19:28 98.9 108 19 144/67 93 04/10/17 15:29 99.2 116 17 173/93 94 04/10/17 14:44 114 22 188/87 98 Nasal Cannula 2 04/10/17 13:00 105 16 155/79 97 04/10/17 12:34 109 20 145/75 97 Nasal Cannula 2 04/10/17 11:55 98 Nasal Cannula 2.00 Result Diagram: 04/10/17 1110 04/11/17 0342 Imaging Last Impressions Chest X-Ray 04/10/17 1052 Signed Impressions: Service Date/Time: Monday, April 10, 2017 10:49 - CONCLUSION: 1. Chronic appearing interstitial change. The heart is at the upper limits of normal in size. Stable compared to previous. Bruno Thompson MD Objective Remarks GENERAL: Well-nourished, well-developed elderly male patient in [facility]. SKIN: Warm and dry. No rash. HEENT: Normocephalic. Atraumatic.Pupils equal and round. Mucous membranes pink and moist. NECK: Supple. Trachea midline. CARDIOVASCULAR: Regular rate and rhythm. S1, S2 noted. No murmur appreciated. RESPIRATORY: No accessory muscle use. Poor air movement throughout all lung novoa with diffuse expiratory wheezing. GASTROINTESTINAL: Abdomen soft, non-tender, nondistended. Normoactive bowel sounds x4. MUSCULOSKELETAL: No obvious deformities. Extremities without clubbing, cyanosis , or edema. NEUROLOGICAL: Awake and alert. No obvious cranial nerve deficits. Motor grossly within normal limits. Normal speech. PSYCHIATRIC: Appropriate mood and affect; insight and judgment normal. Medications and IVs Current Medications Medications (Trade) Dose Ordered Sig/Fina Route Start Time Stop Time Status Last Admin (NS Flush) 2 ml BID IV FLUSH 04/10/17 21:00 04/11/17 10:00 (NS Flush) 2 ml UNSCH PRN IV FLUSH 04/10/17 13:30 (SoluMEDROL INJ) 60 mg Q6H IVP 04/10/17 17:00 04/11/17 05:38 (Heparin Inj) 5,000 units Q8H SQ 04/10/17 14:00 04/11/17 05:38 (D50w (Vial) Inj) 50 ml UNSCH PRN IV 04/10/17 13:30 (Glucagon Inj) 1 mg UNSCH PRN OTHER 04/10/17 13:30 (Prinivil) 5 mg DAILY PO 04/11/17 09:00 Patient Own Medication PT OWN MED: BREO JUSTIN... BID INH 04/11/17 09:00 Hold (Zithromax) 500 mg DAILY PO 04/11/17 09:00 04/11/17 09:57 A/P Problem List: (1) COPD exacerbation ICD Code: J44.1 Status: Acute (2) Hyperglycemia ICD Code: R73.9 Status: Acute Assessment and Plan 71-year-old male with history of HTN and COPD who presented to the ED with complaint of worsening shortness of breath x1day. Acute on Chronic Respiratory Failure secondary to COPD exacerbation: O2 sat dropped to 87% today on room air. Continue IV Solumedrol 60mg q6h, duonebs q6h fina, and O2 as needed. Patient is on oxygen at home, uses 2 L at night, but does not use supplemental oxygen during the day. Check home O2 walk test. Incentive spirometry. Patient is on Breo at home, will continue with Symbicort for now. Started antibiotics with Azithro x5days. Hypertension: Continue patient's lisinopril. Vasotec as needed. Montior BP, adjust antihypertensives as needed. Hyperglycemia: Patient denies history of diabetes. He does take prednisone, which could be contributing to his elevated blood sugar. Monitor Accu-Cheks and cover with sliding scale insulin. Check hemoglobin A1c. DVT Prophylaxis: Heparin sq Discharge Planning Pending further clinical improvement. Possible discharge tomorrow. Mariela Gautam PA-C April 11, 2017 12:03 pm
[2017-04-11] MEDS: LISINOPRIL 5 MG TAB PO SCH (13:09)
[2017-04-11] MEDS ORDERED: AZIT250T3 PO (15:51)
[2017-04-11] MEDS ORDERED: PRED10PA PO (15:51)
[2017-04-11] MEDS ORDERED: IPRASOL INH (15:51)
--- NOTE | 2017-04-11 15:52 | HHI.DCPOC ---
Discharge Care Plan Diagnosis: (1) COPD exacerbation (2) Diabetes (3) HTN (hypertension) Goals to Promote Your Health * To prevent worsening of your condition and complications * To maintain your health at the optimal level Directions to Meet Your Goals Take your medications as prescribed Follow your dietary instruction Follow activity as directed Keep your appointments as scheduled Take your immunizations and boosters as scheduled If your symptoms worsen call your PCP, if no PCP go to Urgent Care Center or Emergency Room Smoking is Dangerous to Your Health. Avoid second hand smoke Call the 24-hour hour crisis hotline for domestic abuse at Mariela Gautam PA-C April 11, 2017 15:52
[2017-04-11] MEDS: BUDESONIDE-FORMOTEROL 160/4.5 MCG INHALER INH SCH (21:13)
[2017-04-12] MEDS: RESP: ALBUTEROL 2.5 MG/IPRATROPIUM 0.5 MG NEB (SCH) INH ×2 (03:06→08:47)
[2017-04-12 03:07] VITALS: O2SAT 95
[2017-04-12 04:14] VITALS: BP 122/56; PULSE 95; RESP 18; TEMP 98.5; O2SAT 97
[2017-04-12] MEDS: HEPARIN SODIUM - SQ 10,000 UNITS/ML VIAL SQ SCH (05:14)
[2017-04-12] MEDS: methylPREDNISolone SOD SUCC 125 MG/2 ML VIAL IVP SCH (05:15)
[2017-04-12] MEDS ORDERED: INSULIN ASPART SUPPLEMENTAL SCALE SQ SCH (07:00)
[2017-04-12 07:35] VITALS: BP 131/76; PULSE 87; RESP 18; TEMP 98.2; O2SAT 97
--- NOTE | 2017-04-12 08:44 | HHI.PR ---
Subjective Remarks Follow up for COPD exacerbation. The patient reports feeling much better today. Denies any shortness of breath at rest, does have some slight dyspnea with exertion. No further wheezing. Cough is much improved. Denies fevers/chills. He wants to be discharge. He plans to see Dr. Gibson within the next week. Objective Vitals Vital Signs Date Time Temp Pulse Resp B/P Pulse Ox O2 Delivery O2 Flow Rate FiO2 04/12/17 07:35 98.2 87 18 131/76 97 04/12/17 04:14 98.5 95 18 122/56 97 04/12/17 03:07 95 Nasal Cannula 3.00 04/11/17 23:45 98.2 99 19 135/60 93 04/11/17 20:24 98.6 101 18 136/59 92 04/11/17 15:27 97.6 100 18 141/70 98 04/11/17 12:30 2.00 04/11/17 11:48 98.6 111 18 154/71 95 04/11/17 11:10 87 21 I/O 04/11/17 04/11/17 04/11/17 04/12/17 04/12/17 04/12/17 07:00 15:00 23:00 07:00 15:00 23:00 Intake Total 800 ml 200 ml 200 ml Output Total 6 ml Balance 794 ml 200 ml 200 ml Intake Oral 800 ml 200 ml 200 ml Output Urine Total 6 ml Result Diagram: 04/10/17 1110 04/11/17 0342 Imaging Last Impressions Chest X-Ray 04/10/17 1052 Signed Impressions: Service Date/Time: Monday, April 10, 2017 10:49 - CONCLUSION: 1. Chronic appearing interstitial change. The heart is at the upper limits of normal in size. Stable compared to previous. Bruno Thompson MD Objective Remarks GENERAL: Well-nourished, well-developed elderly male patient in [facility]. SKIN: Warm and dry. No rash. HEENT: Normocephalic. Atraumatic.Pupils equal and round. Mucous membranes pink and moist. NECK: Supple. Trachea midline. CARDIOVASCULAR: Regular rate and rhythm. S1, S2 noted. No murmur appreciated. RESPIRATORY: No accessory muscle use. Much improved air movement although still slightly diminished at bilateral bases, no wheezing. GASTROINTESTINAL: Abdomen soft, non-tender, nondistended. Normoactive bowel sounds x4. MUSCULOSKELETAL: No obvious deformities. Extremities without clubbing, cyanosis , or edema. NEUROLOGICAL: Awake and alert. No obvious cranial nerve deficits. Motor grossly within normal limits. Normal speech. PSYCHIATRIC: Appropriate mood and affect; insight and judgment normal. Medications and IVs Current Medications Medications (Trade) Dose Ordered Sig/Fina Route Start Time Stop Time Status Last Admin (NS Flush) 2 ml BID IV FLUSH 04/10/17 21:00 04/11/17 23:07 (NS Flush) 2 ml UNSCH PRN IV FLUSH 04/10/17 13:30 (SoluMEDROL INJ) 60 mg Q6H IVP 04/10/17 17:00 04/12/17 05:15 (Heparin Inj) 5,000 units Q8H SQ 04/10/17 14:00 04/12/17 05:14 (D50w (Vial) Inj) 50 ml UNSCH PRN IV 04/10/17 13:30 (Glucagon Inj) 1 mg UNSCH PRN OTHER 04/10/17 13:30 (Prinivil) 5 mg DAILY PO 04/11/17 09:00 04/11/17 13:09 (Zithromax) 500 mg DAILY PO 04/11/17 09:00 04/11/17 09:57 (Symbicort 160-4.5 Inh) 1 puff Q12HR INH 04/11/17 21:00 04/11/17 21:13 A/P Problem List: (1) COPD exacerbation ICD Code: J44.1 Status: Acute (2) Hyperglycemia ICD Code: R73.9 Status: Acute Assessment and Plan 71-year-old male with history of HTN and COPD who presented to the ED with complaint of worsening shortness of breath x1day. Acute on Chronic Respiratory Failure secondary to COPD exacerbation: O2 sat dropped to 87% on room air, patient on home oxygen at night. Continue IV Solumedrol 60mg q6h, duonebs q6h fina, and O2 as needed. Checked home O2 walk test, informed patient he will need to wear O2 throughout the day/night; he verbalized understanding. Incentive spirometry. Patient is on Breo at home, will continue with Symbicort for now. Antibiotics with Azithro x5days total. No further wheezing today, much improved. Outpatient f/up with pulmonology Dr. Gibson. Hypertension: Continue patient's lisinopril. Vasotec as needed. Montior BP, adjust antihypertensives as needed. BP better controlled. Hyperglycemia: Patient denies history of diabetes. He does take prednisone, which could be contributing to his elevated blood sugar. Monitor Accu-Cheks and cover with sliding scale insulin. Hemoglobin A1c 7.1. Discussed his HgbA1c results, patient would prefer to start with diet control, extensively discussed diabetic diet, avoiding carbs/sugars, patient verbalized understanding. Recommend repeat HgbA1c in 3 months with his PCP. DVT Prophylaxis: Heparin sq Discharge Planning Discharge patient to home Condition on discharge: Improved Heart Healthy/Diabetic Diet as tolerated Ad Kassi activity Rx written: Azithromycin, Duoneb solution, Prednisone taper Follow-up with primary care physician Dr. Cordova and pulmonology Dr. Gibson. Mariela Gautam PA-C April 12, 2017 8:44 am
[2017-04-12] MEDS ORDERED: PULSE OXIMETER1 MI1 (08:45)
[2017-04-12 08:50] VITALS: O2SAT 98
[2017-04-12] MEDS: AZITHROMYCIN 250 MG TAB PO SCH (08:59)
[2017-04-12] MEDS: LISINOPRIL 5 MG TAB PO SCH (09:00)
[2017-04-12] MEDS: BUDESONIDE-FORMOTEROL 160/4.5 MCG INHALER INH SCH (09:00)
[2017-04-12] MEDS: SODIUM CHLORIDE 0.9% FLUSH 10 ML FLUSH IV FLUSH SCH (09:01)
== END 2017-04-12 11:47 | disposition home or self-care (01) ==
LOC: NEPC 10:42 → NEDA 13:12 → NEPFCDU 15:25 → NEPGCP 21:11
PROVIDERS: ADMIT Internal Medicine; ATTEND Internal Medicine
DX: J44.1 Chronic obstructive pulmonary disease with (acute) exacerbation (principal); J96.20 Acute and chronic respiratory failure, unspecified whether with hypoxia or hypercapnia; I10 Essential (primary) hypertension; R73.9 Hyperglycemia, unspecified; Z99.81 Dependence on supplemental oxygen; Z79.51 Long term (current) use of inhaled steroids; Z87.891 Personal history of nicotine dependence
CPT/HCPCS: 36600; 71010; 80048; 80053; 82550; 82552; 82805; 82948; 83036; 83735; 83880; 84484; 85025; 85610; 85730; 93005; 94150; 94620; 94640; 94664; 96374; 99285; G0378; J1644; J1815; J2930; J7613

== ENCOUNTER 2017-06-02 13:39 | Observation (INO) | payer OTHER ==
[~2017-06-02] VITALS: Ht 160 cm; Wt 70.0 kg
[~2017-06-02 13:39] MED LIST changes: -ALBUAER3 INH; +AZIT250T3 PO; +IPRASOL INH; +PRED10PA PO; -PRED20 PO; -PRED5TAB PO; +PULSE OXIMETER1 MI1
[2017-06-02 13:42] VITALS: BP 143/87; PULSE 112; RESP 28; TEMP 97.7; O2SAT 93
--- NOTE | 2017-06-02 13:49 | PD ---
Physical Exam Time Seen by Provider: 13:47 Narrative 72 y/o male with chest tightness, shortness of breath for the past few hours. hx of COPD. Denies cough/congestion. Used at-home nebulizer tx with minimal improvement. Vital signs reviewed. Seen at triage desk. Awaiting bed placement. Data Data Last Documented VS Vital Signs Date Time Temp Pulse Resp B/P Pulse Ox O2 Delivery O2 Flow Rate FiO2 06/02/17 13:42 97.7 112 28 143/87 93 MDM Medical Record Reviewed: Yes Supervised Visit with DAVE: Wisam Rebolledo Jun 02, 2017 13:49
[2017-06-02 14:21] LABS: BASOPHIL % 0.4 % (0.0-2.0); EOSINOPHIL # 0.2 TH/MM3 (0-0.4); EOSINOPHIL % 4.4 % (0.0-4.0); HEMATOCRIT 43.2 % (39.0-51.0); HEMO FLAGS DIFF FINAL; LYMPH % 44.5 % (9.0-44.0); LYMPHOCYTE # 2.3 TH/MM3 (1.0-4.8); MEAN CELL VOLUME 84.2 FL (80.0-100.0); MEAN CORPUSCULAR HEMOGLOBIN 27.6 PG (27.0-34.0); MEAN CORPUSCULAR HGB CONC 32.8 % (32.0-36.0); MONO % 11.4 % (0.0-8.0); NEUT % 39.3 % (16.0-70.0); PLATELET COUNT 197 TH/MM3 (150-450); RED BLOOD COUNT 5.13 MIL/MM3 (4.50-5.90); RED CELL DISTRIBUTION WIDTH 16.1 % (11.6-17.2); WHITE BLOOD COUNT 5.1 TH/MM3 (4.0-11.0)
[2017-06-02 14:27] LABS: PROTHROMBIN TIME - PATIENT 10.9 SEC (9.8-11.6)
[2017-06-02 14:30] LABS: MAGNESIUM 2.1 MG/DL (1.5-2.5); POTASSIUM 3.5 MEQ/L (3.5-5.1)
[2017-06-02 14:46] LABS: CKMB 5.2 NG/ML (0.5-3.6)
--- NOTE | 2017-06-02 15:15 | PD ---
HPI Chief Complaint: Chest Pain Time Seen by Provider: 15:15 Travel History International Travel<30 days: No Contact w/Intl Traveler<30days: No Traveled to known affect area: No History of Present Illness HPI 72-year-old male with history of hypertension, COPD, asthma, anxiety, presents to emergency department for evaluation of chest tightness, pressure, and difficulty breathing. She states that despite using his nebulized treatments, his breathing has not improved. Currently he is short of breath, on nasal cannula oxygen, with chest tightness reported. PFSH Past Medical History Arthritis: No Asthma: Yes Autoimmune Disease: No Blood Disorders: No Anxiety: Yes Depression: No Heart Rhythm Problems: No Cancer: No Cardiovascular Problems: Yes (due to copd) High Cholesterol: Yes Chemotherapy: No Chest Pain: No Congestive Heart Failure: No COPD: Yes Cerebrovascular Accident: No Diabetes: No Diminished Hearing: No Endocrine: No Gastrointestinal Disorders: No GERD: No Glaucoma: No Genitourinary: No Headaches: Yes Hepatitis: No Hiatal Hernia: No Hypertension: Yes Immune Disorder: No Implanted Vascular Access Dvce: No Kidney Stones: No Musculoskeletal: No Neurologic: Yes Psychiatric: No Reproductive: No Respiratory: Yes Migraines: Yes Myocardial Infarction: No Radiation Therapy: No Renal Failure: No Seizures: No Sickle Cell Disease: No Sleep Apnea: No Thyroid Disease: No Ulcer: No PNEUMOCCOCAL Vaccine (Year): 2 Past Surgical History Abdominal Surgery: No AICD: No Appendectomy: No Arteriovenous Shunt: No Cardiac Surgery: No Cholecystectomy: No Ear Surgery: No Endocrine Surgery: No Eye Surgery: Yes (cataract bina eyes) Genitourinary Surgery: No Gynecologic Surgery: No Insulin Pump: No Joint Replacement: No Neurologic Surgery: No Oral Surgery: No Pacemaker: No Thoracic Surgery: No Other Surgery: No Social History Alcohol Use: No Tobacco Use: No (quit 2013 smoked 1 ppd) Substance Use: No Allergies-Medications (Allergen,Severity, Reaction): Coded Allergies: No Known Allergies (Verified , 03/12/16) Reported Meds & Prescriptions Reported Meds & Active Scripts Active Pulse Oximeter (Device) 1 Mis Mis 1 Ea .ROUTE DIRECTED Duoneb (Ipratropium-Albuterol Neb) 0.5-2.5 Mg/3 Ml Neb 1 Nebule INH Q6HR NEB Prednisone (21) 10 mg tab Dose Pack (Prednisone) 10 Mg Pack 10 Mg PO DIRECTED Azithromycin 250 Mg Tab 500 Mg PO DAILY Ventolin Hfa 18 GM Inh (Albuterol Sulfate) 90 Mcg/Act Aer 2 Puff INH Q4H PRN Reported Breo Ellipta Inh (Fluticasone/Vilanterol) 200-25 Mcg/Act Inh 1 Puff INH BID Use daily at the same time. Colace (Docusate Sodium) 100 Mg Cap 100 Mg PO BID PRN Lisinopril 5 Mg Tab 5 Mg PO DAILY Review of Systems Except as stated in HPI: all other systems reviewed are Neg Physical Exam Narrative GENERAL: Elderly male patient, sitting up in bed, tri-podding and pursed lip breathing SKIN: Focused skin assessment warm/dry. HEAD: Atraumatic. Normocephalic. EYES: Pupils equal and round. No scleral icterus. No injection or drainage. ENT: No nasal bleeding or discharge. Mucous membranes pink and moist. NECK: Trachea midline. No JVD. CARDIOVASCULAR: Tachycardic rate and rhythm. No murmur appreciated. RESPIRATORY: Tachypneic Diminished throughout to auscultation. Breath sounds equal bilaterally. GASTROINTESTINAL: Abdomen soft, non-tender, nondistended. Hepatic and splenic margins not palpable. MUSCULOSKELETAL: No obvious deformities. No clubbing. No cyanosis. No edema. NEUROLOGICAL: Awake and alert. No obvious cranial nerve deficits. Motor grossly within normal limits. Normal speech. PSYCHIATRIC: Appropriate mood and affect; insight and judgment normal. Data Data Last Documented VS Vital Signs Date Time Temp Pulse Resp B/P Pulse Ox O2 Delivery O2 Flow Rate FiO2 06/02/17 15:38 99 Nasal Cannula 2.00 06/02/17 15:19 95 24 160/85 06/02/17 13:42 97.7 Orders Electrocardiogram (06/02/17 13:50) Ckmb (Isoenzyme) Profile (06/02/17 13:50) Complete Blood Count With Diff (06/02/17 13:50) Magnesium (Mg) (06/02/17 13:50) Prothrombin Time / Inr (Pt) (06/02/17 13:50) Act Partial Throm Time (Ptt) (06/02/17 13:50) Troponin I (06/02/17 13:50) Basic Metabolic Panel (Bmp) (06/02/17 13:50) Chest, Pa & Lat (06/02/17 13:50) CKMB (06/02/17 14:05) CKMB% (06/02/17 14:05) Albuterol-Ipratropium Neb (Duoneb Neb) (06/02/17 15:30) Methylprednisolone So Succ Inj (Solumedr (06/02/17 15:30) Admit Order (Ed Use Only) (06/02/17 16:55) Labs Laboratory Tests Test 06/02/17 14:05 White Blood Count 5.1 TH/MM3 Red Blood Count 5.13 MIL/MM3 Hemoglobin 14.2 GM/DL Hematocrit 43.2 % Mean Corpuscular Volume 84.2 FL Mean Corpuscular Hemoglobin 27.6 PG Mean Corpuscular Hemoglobin 32.8 % Concent Red Cell Distribution Width 16.1 % Platelet Count 197 TH/MM3 Mean Platelet Volume 8.2 FL Neutrophils (%) (Auto) 39.3 % Lymphocytes (%) (Auto) 44.5 % Monocytes (%) (Auto) 11.4 % Eosinophils (%) (Auto) 4.4 % Basophils (%) (Auto) 0.4 % Neutrophils # (Auto) 2.0 TH/MM3 Lymphocytes # (Auto) 2.3 TH/MM3 Monocytes # (Auto) 0.6 TH/MM3 Eosinophils # (Auto) 0.2 TH/MM3 Basophils # (Auto) 0.0 TH/MM3 CBC Comment DIFF FINAL Differential Comment Prothrombin Time 10.9 SEC Prothromb Time International 1.0 RATIO Ratio Activated Partial 28.0 SEC Thromboplast Time Sodium Level 143 MEQ/L Potassium Level 3.5 MEQ/L Chloride Level 108 MEQ/L Carbon Dioxide Level 28.0 MEQ/L Anion Gap 7 MEQ/L Blood Urea Nitrogen 13 MG/DL Creatinine 1.19 MG/DL Estimat Glomerular Filtration 73 ML/MIN Rate Random Glucose 149 MG/DL Calcium Level 8.6 MG/DL Magnesium Level 2.1 MG/DL Total Creatine Kinase 310 U/L Creatine Kinase MB 5.2 NG/ML Creatine Kinase MB % 1.7 % Troponin I 0.02 NG/ML MDM Medical Decision Making Medical Screen Exam Complete: Yes Emergency Medical Condition: Yes Medical Record Reviewed: Yes Differential Diagnosis COPD exacerbation versus pneumonia versus CHF versus ACS Narrative Course 72-year-old male presents to emergency department for evaluation of shortness of breath and chest pressure. Patient is tachypneic and tachycardic initially. He is placed on 2 L nasal cannula. He is given DuoNeb treatment and IV steroids. Upon reassessment, patient continues to have shortness of breath. Laboratory Tests Test 06/02/17 14:05 White Blood Count 5.1 TH/MM3 Red Blood Count 5.13 MIL/MM3 Hemoglobin 14.2 GM/DL Hematocrit 43.2 % Mean Corpuscular Volume 84.2 FL Mean Corpuscular Hemoglobin 27.6 PG Mean Corpuscular Hemoglobin 32.8 % Concent Red Cell Distribution Width 16.1 % Platelet Count 197 TH/MM3 Mean Platelet Volume 8.2 FL Neutrophils (%) (Auto) 39.3 % Lymphocytes (%) (Auto) 44.5 % Monocytes (%) (Auto) 11.4 % Eosinophils (%) (Auto) 4.4 % Basophils (%) (Auto) 0.4 % Neutrophils # (Auto) 2.0 TH/MM3 Lymphocytes # (Auto) 2.3 TH/MM3 Monocytes # (Auto) 0.6 TH/MM3 Eosinophils # (Auto) 0.2 TH/MM3 Basophils # (Auto) 0.0 TH/MM3 CBC Comment DIFF FINAL Differential Comment Prothrombin Time 10.9 SEC Prothromb Time International 1.0 RATIO Ratio Activated Partial 28.0 SEC Thromboplast Time Sodium Level 143 MEQ/L Potassium Level 3.5 MEQ/L Chloride Level 108 MEQ/L Carbon Dioxide Level 28.0 MEQ/L Anion Gap 7 MEQ/L Blood Urea Nitrogen 13 MG/DL Creatinine 1.19 MG/DL Estimat Glomerular Filtration 73 ML/MIN Rate Random Glucose 149 MG/DL Calcium Level 8.6 MG/DL Magnesium Level 2.1 MG/DL Total Creatine Kinase 310 U/L Creatine Kinase MB 5.2 NG/ML Creatine Kinase MB % 1.7 % Troponin I 0.02 NG/ML Lab work is without acute concern. I discussed the patient with my attending physician who agrees the patient benefit from elevation. I discussed patient with Dr. Baca. Patient will be admitted observation to [facility] service. Diagnosis Primary Impression: COPD exacerbation Admitting Information Admitting Physician Requests: Observation Condition: Stable Meagan Srinivasan Jun 02, 2017 15:15
[2017-06-02 15:19] VITALS: BP 160/85; PULSE 95; RESP 24; O2SAT 100
--- NOTE | 2017-06-02 15:19 | RADRPT ---
EXAM DATE/TIME: 06/02/2017 14:33 [facility] COMPARISON: CHEST SINGLE AP, April 10, 2017, 10:49. INDICATIONS : Mid-chest pain, tightness, and shortness of breath. MEDICAL HISTORY : Chronic obstructive pulmonary disease. Hypertension SURGICAL HISTORY : None. ENCOUNTER: Initial ACUITY: 1 day PAIN SCORE: 10/10 LOCATION: Bilateral chest FINDINGS: The lungs are clear without infiltrate, nodule, or mass. There is no appreciable pleural effusion fo r technique. Heart and mediastinum are unremarkable. CONCLUSION: No acute cardiopulmonary disease. Hector Valdez MD on June 02, 2017 at 15:17 Board Certified Radiologist. This report was verified electronically.
[2017-06-02] MEDS ORDERED: methylPREDNISolone SOD SUCC 125 MG/2 ML VIAL IV PUSH ONE (15:30)
[2017-06-02 15:38] VITALS: O2SAT 99
[2017-06-02] MEDS: RESP: ALBUTEROL 2.5 MG/IPRATROPIUM 0.5 MG NEB (SCH) INH (15:38)
[2017-06-02] MEDS ORDERED: RESP: ALBUTEROL 2.5 MG/IPRATROPIUM 0.5 MG NEB (PRN) NEB (17:30)
[2017-06-02] MEDS ORDERED: AZITHROMYCIN 250 MG TAB PO SCH (17:30)
[2017-06-02] MEDS ORDERED: SODIUM CHLORIDE 0.9% FLUSH 10 ML FLUSH IV FLUSH PRN (17:30)
--- NOTE | 2017-06-02 17:46 | HHI.HP ---
[facility] Primary Care Physician Kassie Cordova DO Admission Diagnosis COPD exacerbation; CHEST PRESSURE Diagnoses: Chief Complaint: Shortness of breath Travel History International Travel<30 Days: No Contact w/Intl Traveler <30 Da: No Traveled to Known Affected Are: No History of Present Illness Written by Jayesh Payne, acting as scribe for Dr. Vince Baca on 06/02/17 at 17: 48. Mr. Keyes is 72 yo, with history inclusive of Chronic Obstructive Pulmonary Disease, Asthma, Anxiety, Diabetes Mellitus II (diagnosed Mar, 2017), Hypertension, Hyperlipidemia, and Headaches. Mr. Keyes reported he has been having worsening of symptoms for several weeks; he was admitted to in march of 2017 for COPD exacerbation. Mr. Keyes stated he was working yesterday and a coworker "told me not to go into the break room. " He said he did go in and saw "mold on a pipe in there." Mr. Keyes stated he used his rescue inhaler with minimal relief. He reported shortness of breath and wheezing developed yesterday afternoon.When he went home, he said he had two nebulizer treatments which reportedly did "some good." He spoke of having awakened this morning with shortness of breath and chest pressure. He stated he had another nebulizer treatment and when his symptoms did not improve he was driven by his to ED for evaluation and management of his symptoms. Mr. Keyes denied cough, fever, malaise, nausea. vomiting, bowel or bladder changes. He reportedly "snores, or so my tells me." He stated he uses oxygen "only at night"; sleep apnea was denied. Review of Systems Except as stated in HPI: all other systems reviewed are Neg Past Family Social History Past Medical History Asthma Anxiety Chronic Obstructive Pulmonary Disease, Diabetes Mellitus II (diagnosed Mar, 2017) Headaches Hyperlipidemia Hypertension Past Surgical History Bilateral cataract surgery. Reported Medications Reported Meds & Active Scripts Active Pulse Oximeter (Device) 1 Mis Mis 1 Ea .ROUTE DIRECTED Duoneb (Ipratropium-Albuterol Neb) 0.5-2.5 Mg/3 Ml Neb 1 Nebule INH Q6HR NEB Ventolin Hfa 18 GM Inh (Albuterol Sulfate) 90 Mcg/Act Aer 2 Puff INH Q4H PRN Reported Breo Ellipta Inh (Fluticasone/Vilanterol) 200-25 Mcg/Act Inh 1 Puff INH BID Use daily at the same time. Colace (Docusate Sodium) 100 Mg Cap 100 Mg PO BID PRN Lisinopril 5 Mg Tab 5 Mg PO DAILY Allergies: Coded Allergies: No Known Allergies (Verified , 03/12/16) Active Ordered Medications Current Medications Medications (Trade) Dose Ordered Sig/Fina Route Start Time Stop Time Status Last Admin (NS Flush) 2 ml BID IV FLUSH 06/02/17 21:00 UNV (NS Flush) 2 ml UNSCH PRN IV FLUSH 06/02/17 17:30 UNV (Symbicort 160-4.5 Inh) 2 puff Q12HR INH 06/02/17 21:00 UNV (Zithromax) 500 mg Taper Q24H PO 06/02/17 17:30 06/07/17 17:29 UNV (SoluMEDROL INJ) 40 mg Q8HR IV PUSH 06/02/17 22:00 UNV Family History No known family health issues. Social History Pt reported started smoking cigarettes at age "19 or 24" and smoked 1 ppd until age 68 (49-45 pack year history). He denied alcohol use Recreational and illicit drugs were denied. He reported drinks one cup of coffee a day. Physical Exam Vital Signs Vital Signs Date Time Temp Pulse Resp B/P Pulse Ox O2 Delivery O2 Flow Rate FiO2 06/02/17 15:38 99 Nasal Cannula 2.00 06/02/17 15:19 95 24 160/85 100 Nasal Cannula 2 06/02/17 13:42 97.7 112 28 143/87 93 Physical Exam GENERAL: This is a well-nourished, well-developed patient, in no apparent distress. SKIN: No rashes, ecchymoses or lesions. Cool and dry. HEAD: Atraumatic. Normocephalic. EYES: Pupils equal round and reactive. Extraocular motions intact. No scleral icterus. No injection or drainage. ENT: Nose without bleeding, or purulent drainage. Airway patent. NECK: Trachea midline. No lymphadenopathy. Supple and nontender. CARDIOVASCULAR: Regular rate and rhythm without murmurs, gallops, bruits or rubs. RESPIRATORY: Diminished yet clear to auscultation. Breath sounds equal bilaterally without wheezes, rales, or rhonchi. GASTROINTESTINAL: Abdomen soft, non-tender, nondistended. No hepato-splenomegaly , or guarding. MUSCULOSKELETAL: Extremities without cyanosis, or edema. Clubbing of fingers was evident. No joint tenderness, effusion, or edema noted. NEUROLOGICAL: Awake and alert. Cranial nerves II through XII intact. Motor and sensory grossly within normal limits. Five out of 5 muscle strength in all muscle groups. Speech was clear and fluent. Laboratory Laboratory Tests Test 06/02/17 14:05 White Blood Count 5.1 Red Blood Count 5.13 Hemoglobin 14.2 Hematocrit 43.2 Mean Corpuscular Volume 84.2 Mean Corpuscular Hemoglobin 27.6 Mean Corpuscular Hemoglobin 32.8 Concent Red Cell Distribution Width 16.1 Platelet Count 197 Mean Platelet Volume 8.2 Neutrophils (%) (Auto) 39.3 Lymphocytes (%) (Auto) 44.5 Monocytes (%) (Auto) 11.4 Eosinophils (%) (Auto) 4.4 Basophils (%) (Auto) 0.4 Neutrophils # (Auto) 2.0 Lymphocytes # (Auto) 2.3 Monocytes # (Auto) 0.6 Eosinophils # (Auto) 0.2 Basophils # (Auto) 0.0 CBC Comment DIFF FINAL Differential Comment Prothrombin Time 10.9 Prothromb Time International 1.0 Ratio Activated Partial 28.0 Thromboplast Time Sodium Level 143 Potassium Level 3.5 Chloride Level 108 Carbon Dioxide Level 28.0 Anion Gap 7 Blood Urea Nitrogen 13 Creatinine 1.19 Estimat Glomerular Filtration 73 Rate Random Glucose 149 Calcium Level 8.6 Magnesium Level 2.1 Total Creatine Kinase 310 Creatine Kinase MB 5.2 Creatine Kinase MB % 1.7 Troponin I 0.02 Result Diagram: 06/02/17 1405 06/02/17 1405 Imaging Last Impressions Chest X-Ray 06/02/17 1350 Signed Impressions: Service Date/Time: Friday, June 02, 2017 14:33 - CONCLUSION: No acute cardiopulmonary disease. Hector Valdez MD Assessment and Plan Problem List: (1) COPD exacerbation ICD Code: J44.1 Status: Acute (2) Diabetes ICD Code: E11.9 Status: Acute (3) HTN (hypertension) ICD Code: I10 Status: Chronic Assessment and Plan Mr. Keyes is 72 yo, with history inclusive of Chronic Obstructive Pulmonary Disease, Asthma, Anxiety, Diabetes Mellitus II (diagnosed Mar, 2017), Hypertension, Hyperlipidemia, and Headaches. COPD exacerbation -Observational Admission -Pt received Solumedrol 125 mg injection in ED as well as three duo neb treatments. -Start Solu-Medrol 40 mg IV every 8 hours -breathing treatments (Dunoebs q 6 hours and Symbicort q 12 hours). Resume Breo -supplemental oxygen -Azithromycin 500 mg on day of admission and 250 mg daily for the next 4 days Diabetes -Check am labs. -Pt was counselled about the importance of taking his diabetic medication. Hypertension -monitor, treat elevations on PRN basis -Continue home regimen Lisinopril 5 mg po daily. Diet: diabetic DVT prophylaxis: -SCD/JOSE ANTONIO hose -Ambulation GI prophylaxis: -None ordered upon admission. This note was transcribed by chastity Payne. I, Dr. Tod Baca personally performed the history, physical exam, and medical decision making; and confirmed the accuracy of the information in the transcribed note. Authenticated by Dr. Tod Baca on 06/02/17 at 17:48. Code Status Full code Discussed Condition With Patient and ED staff Problem Qualifiers (1) Diabetes: Qualified Code: E11.9 - Type 2 diabetes mellitus without complication, without long-term current use of insulin (2) HTN (hypertension): Qualified Code: I10 - Essential hypertension Jayesh Payne Jr. Jun 02, 2017 17:46 Tod Baca MD Jun 02, 2017 17:48
[2017-06-02] MEDS ORDERED: UMEC1AER INH (18:34)
[2017-06-02] MEDS: RESP: ALBUTEROL 2.5 MG/IPRATROPIUM 0.5 MG NEB (SCH) NEB (19:08)
[2017-06-02 19:23] VITALS: BP 175/89; PULSE 98; RESP 24; O2SAT 98
[2017-06-02] MEDS ORDERED: DEXTROSE 50% IN WATER 50 ML VIAL(D50) IV PRN (19:30)
[2017-06-02] MEDS ORDERED: GLUCAGON 1 MG/ML VIAL OTHER PRN (19:30)
[2017-06-02 20:00] VITALS: BP 172/78
[2017-06-02 20:45] VITALS: BP 170/85; PULSE 100; RESP 18; O2SAT 98
[2017-06-02] MEDS: INSULIN ASPART SUPPLEMENTAL SCALE SQ SCH (20:58)
[2017-06-02] MEDS: SODIUM CHLORIDE 0.9% FLUSH 10 ML FLUSH IV FLUSH SCH (20:59)
[2017-06-02] MEDS: BUDESONIDE-FORMOTEROL 160/4.5 MCG INHALER INH SCH (20:59)
[2017-06-02] MEDS: UMECLIDINIUM 62.5 MCG/VILANTEROL 25 MCG INHALER INH SCH (21:00)
[2017-06-02] MEDS: methylPREDNISolone SOD SUCC 40 MG/1 ML VIAL IV PUSH SCH (21:01)
[2017-06-03 02:27] VITALS: BP 162/70; PULSE 78; RESP 20; TEMP 97.9; O2SAT 96
[2017-06-03 04:08] VITALS: BP 190/97; PULSE 102; RESP 18; TEMP 98.5; O2SAT 98
[2017-06-03 04:19] VITALS: BP 144/70
[2017-06-03 05:49] LABS: AUTOMATED NEUTROPHIL # 6.6 TH/MM3 (1.8-7.7); BASOPHIL % 0.2 % (0.0-2.0); HEMATOCRIT 42.7 % (39.0-51.0); HEMO FLAGS DIFF FINAL; LYMPH % 10.7 % (9.0-44.0); LYMPHOCYTE # 0.8 TH/MM3 (1.0-4.8); MEAN CELL VOLUME 83.9 FL (80.0-100.0); MEAN CORPUSCULAR HEMOGLOBIN 27.4 PG (27.0-34.0); MEAN CORPUSCULAR HGB CONC 32.7 % (32.0-36.0); NEUT % 88.1 % (16.0-70.0); PLATELET COUNT 207 TH/MM3 (150-450); RED BLOOD COUNT 5.09 MIL/MM3 (4.50-5.90); RED CELL DISTRIBUTION WIDTH 16.1 % (11.6-17.2); WHITE BLOOD COUNT 7.5 TH/MM3 (4.0-11.0)
[2017-06-03 06:10] LABS: ANION GAP 8 MEQ/L (5-15); BICARBONATE 26.7 MEQ/L (21.0-32.0); BLOOD UREA NITROGEN 16 MG/DL (7-18); CHLORIDE 106 MEQ/L (98-107); GLOMERULAR FILTRATION RATE 67 ML/MIN (>89); POTASSIUM 4.4 MEQ/L (3.5-5.1); SODIUM (NA) 141 MEQ/L (136-145)
[2017-06-03] MEDS: methylPREDNISolone SOD SUCC 40 MG/1 ML VIAL IV PUSH SCH (06:15)
[2017-06-03] MEDS: INSULIN ASPART SUPPLEMENTAL SCALE SQ SCH (06:17)
[2017-06-03 07:43] VITALS: BP 138/78; PULSE 95; RESP 14; TEMP 97.7; O2SAT 96
[2017-06-03] MEDS: RESP: ALBUTEROL 2.5 MG/IPRATROPIUM 0.5 MG NEB (SCH) NEB (08:11)
[2017-06-03 08:15] VITALS: O2SAT 95
[2017-06-03] MEDS: UMECLIDINIUM 62.5 MCG/VILANTEROL 25 MCG INHALER INH SCH (08:58)
[2017-06-03] MEDS: SODIUM CHLORIDE 0.9% FLUSH 10 ML FLUSH IV FLUSH SCH (08:59)
[2017-06-03] MEDS: BUDESONIDE-FORMOTEROL 160/4.5 MCG INHALER INH SCH (08:59)
[2017-06-03] MEDS ORDERED: predniSONE 10 MG TAB PO SCH (09:00)
[2017-06-03] MEDS ORDERED: LISINOPRIL 5 MG TAB PO SCH (09:00)
--- NOTE | 2017-06-03 09:11 | HHI.PR ---
Subjective Remarks Follow-up COPD exacerbation 06/03/17-patient seen and examined, reports significant improvement or shortness of breath and denies any chest pain. Had no symptoms of othopenia overnight. Objective Vitals Vital Signs Date Time Temp Pulse Resp B/P Pulse Ox O2 Delivery O2 Flow Rate FiO2 06/03/17 08:15 95 Nasal Cannula 2.00 06/03/17 07:43 97.7 95 14 138/78 96 06/03/17 04:19 144/70 06/03/17 04:08 98.5 102 18 98 06/03/17 02:27 97.9 78 20 162/70 96 06/02/17 20:45 100 18 170/85 98 06/02/17 20:00 96 22 172/78 100 Nasal Cannula 2 06/02/17 19:23 98 24 175/89 98 Nasal Cannula 06/02/17 15:38 99 Nasal Cannula 2.00 06/02/17 15:19 95 24 160/85 100 Nasal Cannula 2 06/02/17 13:42 97.7 112 28 143/87 93 I/O 06/02/17 06/02/17 06/02/17 06/03/17 06/03/17 06/03/17 07:00 15:00 23:00 07:00 15:00 23:00 Intake Total 240 ml Balance 240 ml Intake Oral 240 ml Result Diagram: 06/03/17 0416 06/03/17 0516 Imaging Last Impressions Chest X-Ray 06/02/17 1350 Signed Impressions: Service Date/Time: Friday, June 02, 2017 14:33 - CONCLUSION: No acute cardiopulmonary disease. Hector Valdez MD Objective Remarks GENERAL: NAD SKIN: Warm and dry. HEAD: Normocephalic. EYES: No scleral icterus. No injection or drainage. NECK: Supple, trachea midline. No JVD or lymphadenopathy. CARDIOVASCULAR: Regular rate and rhythm without murmurs, gallops, or rubs. RESPIRATORY: Breath sounds equal bilaterally. No accessory muscle use. GASTROINTESTINAL: Abdomen soft, non-tender, nondistended. MUSCULOSKELETAL: No cyanosis, or edema. BACK: Nontender without obvious deformity. No CVA tenderness. A/P Problem List: (1) COPD exacerbation ICD Code: J44.1 Status: Acute (2) Diabetes ICD Code: E11.9 Status: Acute (3) HTN (hypertension) ICD Code: I10 Status: Chronic Assessment and Plan 72-year-old man with COPD exacerbation -D/C Solu-Medrol 40 mg IV every 8 hours and start prednisone 10 mg daily -Continue breathing treatments (Dunoebs q 6 hours and Symbicort q 12 hours) as well as Breo -supplemental oxygen -Azithromycin 500 mg on day of admission and 250 mg daily for the next 4 days Diabetes -Inquiry placed of patient's pharmacy in order to resume outpatient medications -Continue with insulin sliding scale with fingerstick blood glucose monitoring Hypertension -Continue home regimen Lisinopril 5 mg po daily. DVT prophylaxis: -SCD/JOSE ANTONIO curiele -Ambulation Discharge Planning Discharge patient to home Condition on discharge: Improved Regular Diet as tolerated Ad Kassi activity Rx written:see EMR Follow-up with primary care physician in 1 week Problem Qualifiers (1) Diabetes: Qualified Code: E11.9 - Type 2 diabetes mellitus without complication, without long-term current use of insulin (2) HTN (hypertension): Qualified Code: I10 - Essential hypertension Tod Baca MD Jun 03, 2017 09:11
[2017-06-03] MEDS ORDERED: IPRA17I INH (09:13)
[2017-06-03] MEDS ORDERED: PRED10 PO (09:13)
[2017-06-03] MEDS ORDERED: VENTAER INH (09:13)
[2017-06-03] MEDS ORDERED: AZIT250T3 PO (09:13)
[2017-06-03] MEDS ORDERED: SYMB160A INH (09:13)
[2017-06-03 11:46] VITALS: BP 187/89; PULSE 100; RESP 16; TEMP 97.6; O2SAT 95
--- NOTE | 2017-06-03 17:00 | EKG ---
Date Performed: 06/02/2017 Time Performed: 14:00:25 PTAGE: 72 years EKG: SINUS TACHYCARDIA POSSIBLE LEFT ATRIAL ENLARGEMENT LEFT VENTRICULAR HYPERTROPHY AND ST-T CH KARTIK ABNORMAL ECG PREVIOUS TRACING : 04/10/2017 10.53 Compared to prior tracing no significant change DOCTOR: Romeo Isidro Interpretating Date/Time 06/03/2017 16:59:11
[2017-06-03 17:46] LABS: HEMOGLOBIN A1a 1.1 %; HEMOGLOBIN A1b 2.5 %; HEMOGLOBIN Ao 80.8 %; HEMOGLOBIN LA1C 3.1 %; HEMOGLOBIN P3 4.5 %
== END 2017-06-03 12:06 | disposition home or self-care (01) ==
LOC: NEPC 13:39 → NEDA 16:57 → NEPGCP 20:01
PROVIDERS: ADMIT Hospitalist; ATTEND Hospitalist
DX: J44.1 Chronic obstructive pulmonary disease with (acute) exacerbation (principal); E11.9 Type 2 diabetes mellitus without complications; I10 Essential (primary) hypertension; E78.5 Hyperlipidemia, unspecified; F41.9 Anxiety disorder, unspecified; Z87.891 Personal history of nicotine dependence; R94.31 Abnormal electrocardiogram [ECG] [EKG]; Z79.899 Other long term (current) drug therapy
CPT/HCPCS: 71020; 80048; 82550; 82552; 82948; 83036; 83735; 84484; 85025; 85610; 85730; 93005; 94640; 94664; 96374; 99285; G0378; J1815; J2920; J2930; J7512

== ENCOUNTER 2017-11-17 01:10 | Emergency (ER) | payer OTHER ==
[~2017-11-17] VITALS: Ht 160 cm; Wt 78.0 kg
[~2017-11-17 01:10] MED LIST changes: -COLA100C3 PO; -FLUT1INH7 INH; +IPRA17I INH; -IPRASOL INH; +PRED10 PO; -PRED10PA PO; -PULSE OXIMETER1 MI1; +SYMB160A INH; +UMEC1AER INH
[2017-11-17] MEDS ORDERED: IOHEXOL 350 MG/ML 10 ML VIAL (for RAD DIAG) IVCONTRAST ONE (01:11)
[2017-11-17 01:13] VITALS: BP 182/89; PULSE 89; RESP 26; TEMP 98.5; O2SAT 92
[2017-11-17] MEDS ORDERED: RESP: ALBUTEROL 2.5 MG/IPRATROPIUM 0.5 MG NEB (SCH) INH ONE (02:00)
[2017-11-17] MEDS ORDERED: SODIUM CHLORIDE 0.9% FLUSH 10 ML FLUSH IVF PRN (02:00)
[2017-11-17] MEDS ORDERED: methylPREDNISolone SOD SUCC 125 MG/2 ML VIAL IV PUSH ONE (02:00)
--- NOTE | 2017-11-17 02:15 | PD ---
HPI Chief Complaint: Respiratory Symptoms Time Seen by Provider: 01:48 Travel History International Travel<30 days: No Contact w/Intl Traveler<30days: No Traveled to known affect area: No History of Present Illness HPI This 72-year-old man, history of COPD, presents emergency Department with shortness of breath with chest pain ongoing for the past 3 days or so. No fevers or chills. No real cough. More short of breath with more frequent COPD symptoms recently. Feels like his legs are little bit swollen, little more on the right. In the ED frequently for COPD, no history of heart failure. No history of CAD. No history of DVT PE. Symptoms been constant since onset, gradually worsening. No aggravating or relieving factors. No other associated symptoms. History Past Medical History Narrative Medical Asthma/COPD Anxiety Diabetes Headache Hyperlipidemia Hypertension Tetanus Vaccination: > 5 Years Influenza Vaccination: No PNEUMOCCOCAL Vaccine (Year): 2 Social History Alcohol Use: No Tobacco Use: No (quit 2012 smoked 1 ppd) Allergies-Medications (Allergen,Severity, Reaction): Coded Allergies: No Known Allergies (Verified Adverse Reaction, Unknown, 11/17/17) Reported Meds & Prescriptions Reported Meds & Active Scripts Active Azithromycin 250 Mg Tab 250 Mg PO DIRECTED Take 2 tabs (500 mg) on day 1 then 1 tab daily x 4 days. Atrovent HFA 12.9 GM Inh (Ipratropium [place]) 17 Mcg/Act Aer 2 Puff INH Q6HR PRN Ventolin Hfa 18 GM Inh (Albuterol Sulfate) 90 Mcg/Act Aer 2 Puff INH Q4H PRN Prednisone 10 Mg Tab 10 Mg PO DAILY Symbicort Inh (Budesonide/Formoterol Fumarate) 160-4.5 Mcg/Act Aero 2 Puff INH Q12HR Reported Anoro Ellipta Inh (Umeclidinium/Vilanterol) 62.5-25 Mcg/Act Aero 1 Puff INH BID Lisinopril 5 Mg Tab 5 Mg PO DAILY Review of Systems Except as stated in HPI: all other systems reviewed are Neg Physical Exam Narrative GENERAL: 72-year-old man, generally well-appearing, no acute distress. SKIN: Focused skin assessment warm/dry. HEAD: Atraumatic. Normocephalic. EYES: Pupils equal and round. No scleral icterus. No injection or drainage. ENT: No nasal bleeding or discharge. Mucous membranes pink and moist. NECK: Trachea midline. No JVD. CARDIOVASCULAR: Regular rate and rhythm. No murmur appreciated. RESPIRATORY: No sugar respiratory distress. Diminished breath sounds in the posterior lung novoa some Rales in the bases, no significant wheezing. GASTROINTESTINAL: Abdomen soft, non-tender, nondistended. Hepatic and splenic margins not palpable. MUSCULOSKELETAL: No obvious deformities. Some edema, right greater than left, mild. In the lower extremities NEUROLOGICAL: Awake and alert. No obvious cranial nerve deficits. Motor grossly within normal limits. Normal speech. PSYCHIATRIC: Appropriate mood and affect; insight and judgment normal. Data Data Last Documented VS Vital Signs Date Time Temp Pulse Resp B/P (MAP) Pulse Ox O2 Delivery O2 Flow Rate FiO2 11/17/17 02:44 96 Nasal Cannula 2.00 11/17/17 02:44 98 16 150/66 (94) 11/17/17 01:13 98.5 Orders Orders Complete Blood Count With Diff (11/17/17 01:58) Comprehensive Metabolic Panel (11/17/17 01:58) B-Type Natriuretic Peptide (11/17/17 01:58) Magnesium (Mg) (11/17/17 01:58) Troponin I (11/17/17 01:58) Iv Access Insert/Monitor (11/17/17 01:58) Ecg Monitoring (11/17/17 01:58) Oximetry (11/17/17 01:58) Oxygen Administration (11/17/17 01:58) Chest, Single Ap (11/17/17 01:58) Us Leg Venous Doppler (11/17/17 01:58) Sodium Chloride 0.9% Flush (Ns Flush) (11/17/17 02:00) Methylprednisolone So Succ Inj (Solumedr (11/17/17 02:00) Albuterol-Ipratropium Neb (Duoneb Neb) (11/17/17 02:00) D-Dimer (11/17/17 03:12) Ct Pulmonary Angiogram (11/17/17 ) Albuterol-Ipratropium Neb (Duoneb Neb) (11/17/17 04:30) Azithromycin Inj (Zithromax Inj) (11/17/17 04:30) Iohexol 350 Inj (Omnipaque 350 Inj) (11/17/17 01:11) Labs Laboratory Tests Test 11/17/17 02:02 11/17/17 02:03 11/17/17 03:15 Blood Urea Nitrogen 14 MG/DL Creatinine 1.74 MG/DL Random Glucose 135 MG/DL Total Protein 7.3 GM/DL Albumin 3.6 GM/DL Calcium Level 8.5 MG/DL Magnesium Level 2.1 MG/DL Alkaline Phosphatase 79 U/L Aspartate Amino Transf (AST/SGOT) 22 U/L Alanine Aminotransferase (ALT/SGPT) 25 U/L Total Bilirubin 0.4 MG/DL Sodium Level 147 MEQ/L Potassium Level 4.0 MEQ/L Chloride Level 114 MEQ/L Carbon Dioxide Level 29.4 MEQ/L Anion Gap 4 MEQ/L Estimat Glomerular Filtration Rate 47 ML/MIN Troponin I LESS THAN 0.02 NG/ML B-Type Natriuretic Peptide 34 PG/ML White Blood Count 4.7 TH/MM3 Red Blood Count 5.15 MIL/MM3 Hemoglobin 14.7 GM/DL Hematocrit 43.5 % Mean Corpuscular Volume 84.4 FL Mean Corpuscular Hemoglobin 28.5 PG Mean Corpuscular Hemoglobin Concent 33.7 % Red Cell Distribution Width 15.3 % Platelet Count 214 TH/MM3 Mean Platelet Volume 8.5 FL Neutrophils (%) (Auto) 51.0 % Lymphocytes (%) (Auto) 30.6 % Monocytes (%) (Auto) 11.9 % Eosinophils (%) (Auto) 5.9 % Basophils (%) (Auto) 0.6 % Neutrophils # (Auto) 2.4 TH/MM3 Lymphocytes # (Auto) 1.4 TH/MM3 Monocytes # (Auto) 0.6 TH/MM3 Eosinophils # (Auto) 0.3 TH/MM3 Basophils # (Auto) 0.0 TH/MM3 CBC Comment DIFF FINAL Differential Comment D-Dimer Quantitative (PE/DVT) 1.07 MG/L [facility] Medical Decision Making Medical Screen Exam Complete: Yes Emergency Medical Condition: Yes Interpretation(s) My review of EKG: Sinus tachycardia rate of 102, normal axis, widespread lateral and some inferior ST changes and lateral T wave inversions, similar to previous EKGs, likely LVH. LABS: CBC is unremarkable. CMP remarkable for mildly elevated creatinine. Troponin negative. BNP 34. Chest x-ray negative. CT PE negative Differential Diagnosis COPD exacerbation, CHF, PE, ACS, pneumonia, pneumothorax, other Narrative Course Medical decision making 72 old man presents emergent part chest pain and shortness of breath. Looks generally well. History is all been COPD. EKG is abnormal but unchanged from previous, likely LVH. Is a little bit of asymmetric lower extremity edema. I don't hear a lot of wheezing on exam to strongly support COPD exacerbation as etiology, wider differential diagnosis would include CHF ACS or PE. We'll check labs, ultrasound of the right leg, d-dimer troponin BNP. Reassess. FINAL: Patient feeling much improved. Workup for other etiologies unrevealing, leaving COPD is most likely etiology for the patient's symptoms. This consistent with his history. Recommend treatment for COPD exacerbation. Diagnosis Primary Impression: COPD exacerbation Additional Instructions: Take antibiotics as prescribed. Use steroids as prescribed. Continue albuterol every 4-6 hours as needed. Follow-up with her primary doctor in the next 2-4 days. Return to the emergency department for any new or worsening symptoms. Med/Other Pt SpecificInfo: Prescription(s) given Scripts Azithromycin (Azithromycin) 250 Mg Tab 250 MG PO DAILY for Infection for 4 Days, #4 TAB 0 Refills Prov: Lior Wolf MD 11/17/17 Prednisone (Deltasone) 20 Mg Tab 40 MG PO DAILY for 10 Days, #20 TAB 0 Refills Prov: Lior Wolf MD 11/17/17 Albuterol 18 GM Inh (Ventolin Hfa 18 GM Inh) 90 Mcg/Act Aer 2 PUFF INH Q4H Y for SHORTNESS OF BREATH, #1 INHALER 3 Refills Prov: Lior Wolf MD 11/17/17 Disposition: 01 DISCHARGE HOME Condition: Stable Lior Wolf MD Nov 17, 2017 02:15
[2017-11-17 02:16] LABS: AUTOMATED NEUTROPHIL # 2.4 TH/MM3 (1.8-7.7); BASOPHIL % 0.6 % (0.0-2.0); EOSINOPHIL # 0.3 TH/MM3 (0-0.4); EOSINOPHIL % 5.9 % (0.0-4.0); HEMATOCRIT 43.5 % (39.0-51.0); HEMOGLOBIN 14.7 GM/DL (13.0-17.0); LYMPH % 30.6 % (9.0-44.0); LYMPHOCYTE # 1.4 TH/MM3 (1.0-4.8); MEAN CELL VOLUME 84.4 FL (80.0-100.0); MEAN CORPUSCULAR HEMOGLOBIN 28.5 PG (27.0-34.0); MEAN CORPUSCULAR HGB CONC 33.7 % (32.0-36.0); MEAN PLATELET VOLUME 8.5 FL (7.0-11.0); MONO % 11.9 % (0.0-8.0); MONOCYTE # 0.6 TH/MM3 (0-0.9); PLATELET COUNT 214 TH/MM3 (150-450); RED BLOOD COUNT 5.15 MIL/MM3 (4.50-5.90); RED CELL DISTRIBUTION WIDTH 15.3 % (11.6-17.2); WHITE BLOOD COUNT 4.7 TH/MM3 (4.0-11.0)
--- NOTE | 2017-11-17 02:23 | RADRPT ---
EXAM DATE/TIME: 11/17/2017 02:15 [facility] COMPARISON: CHEST PA & LAT, June 02, 2017, 14:33. INDICATIONS : Short of breath. MEDICAL HISTORY : Chronic obstructive pulmonary disease. Hypertension SURGICAL HISTORY : None. ENCOUNTER: Initial ACUITY: 1 day PAIN SCORE: 0/10 LOCATION: Bilateral chest FINDINGS: The lungs are clear without infiltrate, nodule, or mass. There is no appreciable pleural effusion fo r technique. Heart and mediastinum are unremarkable. CONCLUSION: No acute cardiopulmonary disease. Hector Valdez MD on November 17, 2017 at 2:21 Board Certified Radiologist. This report was verified electronically.
[2017-11-17 02:44] VITALS: BP 150/66; PULSE 98; RESP 16; O2SAT 96
[2017-11-17 02:49] LABS: ALKALINE PHOSPHATASE 79 U/L (45-117); TOTAL BILIRUBIN ADULT 0.4 MG/DL (0.2-1.0); TOTAL PROTEIN 7.3 GM/DL (6.4-8.2); TROPONIN I LESS THAN 0.02 NG/ML (0.02-0.05)
[2017-11-17 02:50] LABS: ALBUMIN 3.6 GM/DL (3.4-5.0); ALT (GPT) 25 U/L (12-78); AST (GOT) 22 U/L (15-37); BICARBONATE 29.4 MEQ/L (21.0-32.0); BLOOD UREA NITROGEN 14 MG/DL (7-18); CALCIUM 8.5 MG/DL (8.5-10.1); CHLORIDE 114 MEQ/L (98-107); CREATININE 1.74 MG/DL (0.60-1.30); GLOMERULAR FILTRATION RATE 47 ML/MIN (>89); GLUCOSE,RANDOM 135 MG/DL (74-106); MAGNESIUM 2.1 MG/DL (1.5-2.5); SODIUM (NA) 147 MEQ/L (136-145)
--- NOTE | 2017-11-17 03:34 | RADRPT ---
EXAM DATE/TIME: 11/17/2017 03:03 [facility] COMPARISON: No previous studies available for comparison. INDICATIONS : Right leg swelling. MEDICAL HISTORY : Hypercholesterolemia. Hypertension. Chronic obstructive pulmonary disease. SURGICAL HISTORY : Eye surgery. ENCOUNTER: Initial ACUITY: 1 day PAIN SCORE: 2/10 LOCATION: Right leg. TECHNIQUE: Venous ultrasound of the leg was performed from the inguinal ligament to the proximal calf. Real-marline e, color Doppler and spectral tracing, compression and augmentation techniques were used. FINDINGS: There is normal compressibility of the deep venous system from the inguinal region to the proximal ca lf. No echogenic clot is seen in the lumen of the common femoral, femoral, popliteal, and posterior tibial veins. There is a normal response of the venous system to proximal and distal augmentation an d respiration. CONCLUSION: Normal examination. Hector Valdez MD on November 17, 2017 at 3:33 Board Certified Radiologist. This report was verified electronically.
[2017-11-17] MEDS ORDERED: AZITHROMYCIN INJ 500 MG in SODIUM CHLOR 0.9% 250 ML INJ 250 ML IV ONE (04:30)
[2017-11-17] MEDS ORDERED: RESP: ALBUTEROL 2.5 MG/IPRATROPIUM 0.5 MG NEB (SCH) NEB ONE (04:30)
--- NOTE | 2017-11-17 05:16 | RADRPT ---
EXAM DATE/TIME: 11/17/2017 04:39 [facility] COMPARISON: No previous studies available for comparison. INDICATIONS : Chest pain with shortness of breath. IV CONTRAST: 75 cc Omnipaque 350 (iohexol) IV RADIATION DOSE: 12.37 CTDIvol (mGy) MEDICAL HISTORY : None SURGICAL HISTORY : None. ENCOUNTER: Initial ACUITY: 1 week PAIN SCALE: 6/10 LOCATION: Bilateral chest TECHNIQUE: Volumetric scanning of the chest was performed using a pulmonary embolism protocol MIP images were re constructed. Using automated exposure control and adjustment of the mA and/or kV according to patien t size, radiation dose was kept as low as reasonably achievable to obtain optimal diagnostic quality images. DICOM format image data is available electronically for review and comparison. Follow-up recommendations for detected pulmonary nodules are based at a minimum on nodule size and pa tient risk factors according to Fleischner Society Guidelines. FINDINGS: There is no evidence for PE for technique. Extensive COPD is identified and there is an approxim ate 8mm right upper lobe nodule anterolaterally described on the patient's prior chest CT from 2012, however the examination is not available at this time for direct comparison. There is no pleural effu shon. CONCLUSION: 1. There is no evidence for PE for technique. 2. Right upper lobe nodule discussed on the patient's prior chest CT from 2012 most likely benign. Hector Valdez MD on November 17, 2017 at 5:11 Board Certified Radiologist. This report was verified electronically.
[2017-11-17] MEDS ORDERED: AZIT250T3 PO (05:36)
[2017-11-17] MEDS ORDERED: VENTAER INH (05:36)
[2017-11-17] MEDS ORDERED: PRED-503 PO (05:36)
[2017-11-17 05:42] VITALS: BP 190/103
--- NOTE | 2017-11-17 17:38 | EKG ---
Date Performed: 11/17/2017 Time Performed: 01:35:22 PTAGE: 72 years EKG: SINUS TACHYCARDIA WITH OCCASIONAL SUPRAVENTRICULAR PREMATURE COMPLEXES ST DEVIATION AND MOD ERATE T-WAVE ABNORMALITY, CONSIDER LATERAL ISCHEMIA Since previous tracing, no significant change not ed ABNORMAL ECG PREVIOUS TRACING : 06/02/2017 14.00.25 DOCTOR: Rhonda Herman Interpretating Date/Time 11/17/2017 17:36:52
== END 2017-11-17 05:58 | disposition home or self-care (01) ==
LOC: NEPE 01:10
DX: J44.1 Chronic obstructive pulmonary disease with (acute) exacerbation (principal); I10 Essential (primary) hypertension; Z79.899 Other long term (current) drug therapy; Z87.891 Personal history of nicotine dependence
CPT/HCPCS: 71010; 71275; 80053; 83735; 83880; 84484; 85025; 85379; 93005; 93971; 94640; 94664; 96374; 96375; 99285; J0456; J2930; J7050; Q9967

== ENCOUNTER 2018-01-14 07:48 | Emergency (ER) | payer OTHER ==
[~2018-01-14] VITALS: Ht 160 cm; Wt 77.0 kg
[~2018-01-14 07:48] MED LIST changes: +PRED-503 PO
[2018-01-14 07:52] VITALS: BP 179/93; PULSE 103; RESP 20; TEMP 98.3; O2SAT 91
[2018-01-14] MEDS ORDERED: CHOLESTEROL MED PO (08:03)
--- NOTE | 2018-01-14 08:12 | PD ---
HPI Chief Complaint: Respiratory Symptoms Time Seen by Provider: 08:01 Travel History International Travel<30 days: No Contact w/Intl Traveler<30days: No Traveled to known affect area: No History of Present Illness HPI This 72-year-old male presents with complaint of cough. He has a history of COPD. He is currently on 5 mg of prednisone. He had had a cold with runny nose and congestion. He then has had a persistent cough. The cough is been going on for 5 days. He does have a history of COPD. He is short of breath at times. He uses oxygen at night. Not aware of fever or chills. He is not having chest pain. He had an exacerbation in October and had a sound of the legs and CTA of the chest at that time. There were negative for thrombotic disease. He did have a nodule in his lung which has been stable for some time. PFSH Past Medical History Arthritis: No Asthma: Yes Autoimmune Disease: No Blood Disorders: No Anxiety: Yes Depression: No Heart Rhythm Problems: No Cancer: No Cardiovascular Problems: Yes (due to copd) High Cholesterol: Yes Chemotherapy: No Chest Pain: No Congestive Heart Failure: No COPD: Yes Cerebrovascular Accident: No Diabetes: Yes (dm II) Patient Takes Glucophage: Yes Diminished Hearing: No Endocrine: No Gastrointestinal Disorders: No GERD: No Glaucoma: No Genitourinary: No Headaches: Yes Hepatitis: No Hiatal Hernia: No Heparin Induced Thrombocytopen: No Hypertension: Yes Immune Disorder: No Implanted Vascular Access Dvce: No Kidney Stones: No Medical other: No Musculoskeletal: No Neurologic: Yes Psychiatric: No Reproductive: No Respiratory: Yes (COPD) Migraines: Yes Myocardial Infarction: No Radiation Therapy: No Renal Failure: No Seizures: No Sickle Cell Disease: No Sleep Apnea: No Thyroid Disease: No Ulcer: No Tetanus Vaccination: Unknown Influenza Vaccination: No PNEUMOCCOCAL Vaccine (Year): 2 Past Surgical History Abdominal Surgery: No AICD: No Appendectomy: No Arteriovenous Shunt: No Cardiac Surgery: No Cholecystectomy: No Ear Surgery: No Endocrine Surgery: No Eye Surgery: Yes (cataract bina eyes) Genitourinary Surgery: No Gynecologic Surgery: No Insulin Pump: No Joint Replacement: No Neurologic Surgery: No Oral Surgery: No Pacemaker: No Thoracic Surgery: No Other Surgery: No Social History Alcohol Use: No Tobacco Use: No (quit 2012 smoked 1 ppd) Substance Use: No Allergies-Medications (Allergen,Severity, Reaction): Coded Allergies: No Known Allergies (Verified Adverse Reaction, Unknown, 01/14/18) Reported Meds & Prescriptions Reported Meds & Active Scripts Active Prednisone 20 Mg Tab 20 Mg PO DIRECTED 40 MG twice a day x 3 days, then 20 MG daily x 3 days, then 10 MG daily x 3 days Amoxicillin 500 Mg Cap 500 Mg PO TID 10 Days Ventolin Hfa 18 GM Inh (Albuterol Sulfate) 90 Mcg/Act Aer 2 Puff INH Q4H PRN Atrovent HFA 12.9 GM Inh (Ipratropium [place]) 17 Mcg/Act Aer 2 Puff INH Q6HR PRN Symbicort Inh (Budesonide/Formoterol Fumarate) 160-4.5 Mcg/Act Aero 2 Puff INH Q12HR Reported [Cholesterol Med] 20 Mg PO DAILY Lisinopril 5 Mg Tab 5 Mg PO DAILY Review of Systems General / Constitutional: No: Fever Eyes: No: Diploplia, Blurred Vision HENT: No: Headaches Cardiovascular: No: Chest Pain or Discomfort Respiratory: Positive: Cough, Shortness of Breath Gastrointestinal: No: Vomiting, Diarrhea Genitourinary: No: Urgency, Frequency Musculoskeletal: No: Myalgias Skin: No Rash Neurologic: No: Weakness Hematologic/Lymphatic: No: Easy Bruising Physical Exam Narrative GENERAL: Well-developed male SKIN: Focused skin assessment warm/dry. HEAD: Atraumatic. Normocephalic. EYES: Pupils equal and round. No scleral icterus. No injection or drainage. ENT: No nasal bleeding or discharge. Mucous membranes pink and moist. NECK: Trachea midline. No JVD. CARDIOVASCULAR: Regular rate and rhythm. No murmur appreciated. RESPIRATORY: No accessory muscle use. There are occasional rhonchi. There are diminished breath sounds bilaterally GASTROINTESTINAL: Abdomen soft, non-tender, nondistended. Hepatic and splenic margins not palpable. MUSCULOSKELETAL: No obvious deformities. No clubbing. No cyanosis. No edema. NEUROLOGICAL: Awake and alert. No obvious cranial nerve deficits. Motor grossly within normal limits. Normal speech. PSYCHIATRIC: Appropriate mood and affect; insight and judgment normal. Data Data Last Documented VS Vital Signs Date Time Temp Pulse Resp B/P (MAP) Pulse Ox O2 Delivery O2 Flow Rate FiO2 01/14/18 08:04 95 Room Air 2/22/18 07:52 98.3 103 20 179/93 (121) Orders Orders Chest, Pa & Lat (01/14/18 08:08) MDM Medical Decision Making Medical Screen Exam Complete: Yes Emergency Medical Condition: Yes Medical Record Reviewed: Yes Differential Diagnosis Differential includes pneumonia, COPD exacerbation, bronchitis Narrative Course Chest x-ray is negative for focal infiltrates. I believe the patient is having bronchitis and mild COPD exacerbation. He'll be put on amoxicillin and prednisone Diagnosis Primary Impression: COPD exacerbation Scripts Prednisone (Prednisone) 20 Mg Tab 20 MG PO DIRECTED for Inflammation, #11 TAB 0 Refills 40 MG twice a day x 3 days, then 20 MG daily x 3 days, then 10 MG daily x 3 days Prov: Joe Stokes MD 01/14/18 Amoxicillin (Amoxicillin) 500 Mg Cap 500 MG PO TID for Infection for 10 Days, CAP 0 Refills Prov: Joe Stokes MD 01/14/18 Disposition: 01 DISCHARGE HOME Condition: Stable Joe Stokes MD Jan 14, 2018 08:12
[2018-01-14] MEDS ORDERED: AMOX500C PO (09:09)
[2018-01-14] MEDS ORDERED: PRED20 PO (09:09)
--- NOTE | 2018-01-14 09:29 | RADRPT ---
EXAM DATE/TIME: 01/14/2018 08:13 [facility] COMPARISON: CHEST PA & LAT, June 02, 2017, 14:33. INDICATIONS : Cough x 5 days. MEDICAL HISTORY : Hypercholesterolemia. Hypertension. Chronic obstructive pulmonary disease. SURGICAL HISTORY : Eye surgery. ENCOUNTER: Initial ACUITY: 4 - 6 days PAIN SCORE: 0/10 LOCATION: chest FINDINGS: PA and lateral views of the chest demonstrate the lungs to be symmetrically aerated without evidence of mass, infiltrate or effusion. Mild linear basal atelectasis. The cardiomediastinal contours are unremarkable. Osseous structures are osteopenic. CONCLUSION: No focal infiltrates seen. Mild bibasilar atelectasis. Rashi Murphy MD on January 14, 2018 at 9:26 Board Certified Radiologist. This report was verified electronically.
[2018-01-14] MEDS ORDERED: predniSONE 20 MG TAB PO ONE (09:45)
[2018-01-14 10:10] VITALS: BP 176/86
== END 2018-01-14 10:10 | disposition home or self-care (01) ==
LOC: PHED 07:48
DX: J44.1 Chronic obstructive pulmonary disease with (acute) exacerbation (principal); J98.11 Atelectasis; F41.9 Anxiety disorder, unspecified; E78.00 Pure hypercholesterolemia, unspecified; E11.9 Type 2 diabetes mellitus without complications; I10 Essential (primary) hypertension; Z87.891 Personal history of nicotine dependence; Z79.899 Other long term (current) drug therapy
CPT/HCPCS: 71046; 99283; J7512

== ENCOUNTER 2018-03-02 12:48 | Emergency (ER) | payer OTHER ==
[~2018-03-02] VITALS: Ht 160 cm; Wt 76.0 kg
[~2018-03-02 12:48] MED LIST changes: +AMOX500C PO; -AZIT250T3 PO; +CHOLESTEROL MED PO; -PRED-503 PO; -PRED10 PO; +PRED20 PO; -UMEC1AER INH
[2018-03-02 12:51] VITALS: BP 160/70; PULSE 109; RESP 22; TEMP 97.8; O2SAT 94
[2018-03-02 13:00] VITALS: O2SAT 91
--- NOTE | 2018-03-02 13:25 | PD ---
HPI Chief Complaint: Respiratory Symptoms Time Seen by Provider: 13:02 Travel History International Travel<30 days: No Contact w/Intl Traveler<30days: No Traveled to known affect area: No History of Present Illness HPI 72-year-old male is complaining of shortness of breath. He has a history of COPD. He has been coughing the last couple of days. He has been on prednisone in the past but is not on it now. He has not had fever or chills. He does not complain of chest pain. He does not smoke. 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 He has occasional smoke exposure at work PFS Past Medical History Arthritis: No Asthma: Yes Autoimmune Disease: No Blood Disorders: No Anxiety: Yes Depression: No Heart Rhythm Problems: No Cancer: No Cardiovascular Problems: Yes (due to copd) High Cholesterol: Yes Chemotherapy: No Chest Pain: No Congestive Heart Failure: No COPD: Yes Cerebrovascular Accident: No Diabetes: Yes (dm II) Patient Takes Glucophage: No Diminished Hearing: No Endocrine: No Gastrointestinal Disorders: No GERD: No Glaucoma: No Genitourinary: No Headaches: Yes Hepatitis: No Hiatal Hernia: No Heparin Induced Thrombocytopen: No Hypertension: Yes Immune Disorder: No Implanted Vascular Access Dvce: No Kidney Stones: No Musculoskeletal: No Neurologic: Yes Psychiatric: No Reproductive: No Respiratory: Yes Migraines: Yes Myocardial Infarction: No Radiation Therapy: No Renal Failure: No Seizures: No Sickle Cell Disease: No Sleep Apnea: No Thyroid Disease: No Ulcer: No Tetanus Vaccination: Unknown Influenza Vaccination: No PNEUMOCCOCAL Vaccine (Year): 2 ?: Not Past Surgical History Surgical History: No Previous Surgery Abdominal Surgery: No AICD: No Appendectomy: No Arteriovenous Shunt: No Cardiac Surgery: No Cholecystectomy: No Ear Surgery: No Endocrine Surgery: No Eye Surgery: Yes (cataract bina eyes) Genitourinary Surgery: No Gynecologic Surgery: No Insulin Pump: No Joint Replacement: No Neurologic Surgery: No Oral Surgery: No Pacemaker: No Thoracic Surgery: No Other Surgery: No Social History Alcohol Use: No Tobacco Use: No (quit 2012 smoked 1 ppd) Substance Use: No Allergies-Medications (Allergen,Severity, Reaction): Coded Allergies: No Known Allergies (Verified Adverse Reaction, Unknown, 03/02/18) Reported Meds & Prescriptions Reported Meds & Active Scripts Active Prednisone 20 Mg Tab 20 Mg PO DIRECTED 40 MG twice a day x 3 days, then 20 MG daily x 3 days, then 10 MG daily x 3 days Amoxicillin 500 Mg Cap 500 Mg PO TID 10 Days Ventolin Hfa 18 GM Inh (Albuterol Sulfate) 90 Mcg/Act Aer 2 Puff INH Q4H PRN Atrovent HFA 12.9 GM Inh (Ipratropium [place]) 17 Mcg/Act Aer 2 Puff INH Q6HR PRN Symbicort Inh (Budesonide/Formoterol Fumarate) 160-4.5 Mcg/Act Aero 2 Puff INH Q12HR Reported [Cholesterol Med] 20 Mg PO DAILY Lisinopril 5 Mg Tab 5 Mg PO DAILY Review of Systems General / Constitutional: No: Fever, Chills Eyes: No: Diploplia, Blurred Vision HENT: No: Headaches, Vertigo Cardiovascular: No: Chest Pain or Discomfort, Palpitations Respiratory: Positive: Cough, Shortness of Breath Gastrointestinal: No: Nausea, Vomiting Genitourinary: No: Urgency, Frequency Musculoskeletal: No: Myalgias, Arthralgias Skin: No Rash, No Itching Neurologic: No: Weakness, Dizziness Endocrine: No: Heat Intolerance Hematologic/Lymphatic: No: Easy Bruising Physical Exam Narrative GENERAL: Well-developed male SKIN: Focused skin assessment warm/dry. HEAD: Atraumatic. Normocephalic. EYES: Pupils equal and round. No scleral icterus. No injection or drainage. ENT: No nasal bleeding or discharge. Mucous membranes pink and moist. NECK: Trachea midline. No JVD. CARDIOVASCULAR: Regular rate and rhythm. No murmur appreciated. RESPIRATORY: No accessory muscle use. Breath sounds diminished bilaterally. GASTROINTESTINAL: Abdomen soft, non-tender, nondistended. Hepatic and splenic margins not palpable. MUSCULOSKELETAL: No obvious deformities. No clubbing. No cyanosis. No edema. NEUROLOGICAL: Awake and alert. No obvious cranial nerve deficits. Motor grossly within normal limits. Normal speech. PSYCHIATRIC: Appropriate mood and affect; insight and judgment normal. Data Data Last Documented VS Vital Signs Date Time Temp Pulse Resp B/P (MAP) Pulse Ox O2 Delivery O2 Flow Rate FiO2 03/02/18 14:15 90 20 154/78 (103) 96 Nasal Cannula 1.00 03/02/18 12:51 97.8 Orders Orders Complete Blood Count With Diff (03/02/18 13:19) Basic Metabolic Panel (Bmp) (03/02/18 13:19) B-Type Natriuretic Peptide (03/02/18 13:19) Troponin I (03/02/18 13:19) Iv Access Insert/Monitor (03/02/18 13:19) Electrocardiogram (03/02/18 13:19) Ecg Monitoring (03/02/18 13:19) Oximetry (03/02/18 13:19) Oxygen Administration (03/02/18 13:19) Chest, Single Ap (03/02/18 13:19) Sodium Chloride 0.9% Flush (Ns Flush) (03/02/18 13:30) Methylprednisolone So Succ Inj (Solumedr (03/02/18 13:30) Albuterol-Ipratropium Neb (Duoneb Neb) (03/02/18 13:30) Potassium Chloride (Kcl) (03/02/18 14:15) Labs Laboratory Tests Test 03/02/18 13:25 03/02/18 13:45 White Blood Count 5.0 TH/MM3 Red Blood Count 4.78 MIL/MM3 Hemoglobin 13.2 GM/DL Hematocrit 41.0 % Mean Corpuscular Volume 85.6 FL Mean Corpuscular Hemoglobin 27.6 PG Mean Corpuscular Hemoglobin Concent 32.3 % Red Cell Distribution Width 15.1 % Platelet Count 227 TH/MM3 Mean Platelet Volume 8.1 FL Neutrophils (%) (Auto) 45.8 % Lymphocytes (%) (Auto) 38.3 % Monocytes (%) (Auto) 9.1 % Eosinophils (%) (Auto) 4.9 % Basophils (%) (Auto) 1.9 % Neutrophils # (Auto) 2.3 TH/MM3 Lymphocytes # (Auto) 1.9 TH/MM3 Monocytes # (Auto) 0.5 TH/MM3 Eosinophils # (Auto) 0.2 TH/MM3 Basophils # (Auto) 0.1 TH/MM3 CBC Comment DIFF FINAL Differential Comment Blood Urea Nitrogen 13 MG/DL Creatinine 1.20 MG/DL Random Glucose 177 MG/DL Calcium Level 8.3 MG/DL Sodium Level 144 MEQ/L Potassium Level 3.3 MEQ/L Chloride Level 108 MEQ/L Carbon Dioxide Level 30.3 MEQ/L Anion Gap 6 MEQ/L Estimat Glomerular Filtration Rate 72 ML/MIN Troponin I LESS THAN 0.02 NG/ML B-Type Natriuretic Peptide 35 PG/ML MDM Medical Decision Making Medical Screen Exam Complete: Yes Emergency Medical Condition: Yes Medical Record Reviewed: Yes Differential Diagnosis Differential includes CHF, COPD exacerbation, pneumonia Narrative Course X-ray i shows a 7 mm nodule in the right upper lung. CT as an outpatient is recommended. He has been given repeated nebulizer treatments. His BNP is normal. He has been given Solu-Medrol. He will be released with prescription for prednisone. His saturations have been stable in the mid 90s Diagnosis Primary Impression: COPD (chronic obstructive pulmonary disease) Scripts Prednisone (Prednisone) 20 Mg Tab 20 MG PO DIRECTED for Inflammation, #11 TAB 0 Refills 40 MG twice a day x 3 days, then 20 MG daily x 3 days, then 10 MG daily x 3 days Prov: Joe Stokes MD 03/02/18 Disposition: 01 DISCHARGE HOME Condition: Stable Joe Stokes MD Mar 02, 2018 13:25
[2018-03-02] MEDS ORDERED: methylPREDNISolone SOD SUCC 125 MG/2 ML VIAL IV PUSH ONE (13:30)
[2018-03-02] MEDS ORDERED: SODIUM CHLORIDE 0.9% FLUSH 10 ML FLUSH IVF PRN (13:30)
[2018-03-02] MEDS: RESP: ALBUTEROL 2.5 MG/IPRATROPIUM 0.5 MG NEB (SCH) INH ×2 (13:34→13:35)
[2018-03-02 13:44] VITALS: O2SAT 96
[2018-03-02 13:46] LABS: AUTOMATED NEUTROPHIL # 2.3 TH/MM3 (1.8-7.7); BASOPHIL # 0.1 TH/MM3 (0-0.2); BASOPHIL % 1.9 % (0.0-2.0); EOSINOPHIL # 0.2 TH/MM3 (0-0.4); EOSINOPHIL % 4.9 % (0.0-4.0); HEMOGLOBIN 13.2 GM/DL (13.0-17.0); LYMPH % 38.3 % (9.0-44.0); LYMPHOCYTE # 1.9 TH/MM3 (1.0-4.8); MEAN CELL VOLUME 85.6 FL (80.0-100.0); MEAN CORPUSCULAR HEMOGLOBIN 27.6 PG (27.0-34.0); MEAN CORPUSCULAR HGB CONC 32.3 % (32.0-36.0); MEAN PLATELET VOLUME 8.1 FL (7.0-11.0); MONO % 9.1 % (0.0-8.0); MONOCYTE # 0.5 TH/MM3 (0-0.9); NEUT % 45.8 % (16.0-70.0); PLATELET COUNT 227 TH/MM3 (150-450); RED BLOOD COUNT 4.78 MIL/MM3 (4.50-5.90); RED CELL DISTRIBUTION WIDTH 15.1 % (11.6-17.2)
[2018-03-02 13:53] LABS: CHLORIDE 108 MEQ/L (98-107); SODIUM (NA) 144 MEQ/L (136-145)
[2018-03-02 13:56] LABS: BICARBONATE 30.3 MEQ/L (21.0-32.0); BLOOD UREA NITROGEN 13 MG/DL (7-18); CALCIUM 8.3 MG/DL (8.5-10.1); GLUCOSE,RANDOM 177 MG/DL (74-106)
[2018-03-02 14:00] LABS: GLOMERULAR FILTRATION RATE 72 ML/MIN (>89)
[2018-03-02 14:04] LABS: TROPONIN I LESS THAN 0.02 NG/ML (0.02-0.05)
[2018-03-02 14:15] VITALS: BP 154/78; PULSE 90; RESP 20; O2SAT 96
[2018-03-02] MEDS ORDERED: POTASSIUM CHLORIDE 20 MEQ CONTROLLED RELEASE TAB PO ONE (14:15)
[2018-03-02] MEDS ORDERED: PRED20 PO (14:27)
--- NOTE | 2018-03-02 14:39 | RADRPT ---
EXAM DATE/TIME: 03/02/2018 14:01 [facility] COMPARISON: CHEST PA & LAT, January 14, 2018, 8:13. CT PULMONARY ANGIOGRAM, November 17, 2017, 4:39. CHEST SIN GLE AP, November 17, 2017, 2:15. INDICATIONS : Short of breath for four days. MEDICAL HISTORY : Hypercholesterolemia. Hypertension. Chronic obstructive pulmonary disease. SURGICAL HISTORY : None. ENCOUNTER: Initial ACUITY: 1 day PAIN SCORE: 0/10 LOCATION: Bilateral chest FINDINGS: Persistent linear parenchymal opacities in the left lower lung zone similar to prior exam. 7 mm nodul ar opacity in the right upper lobe which appears new since previous examination. Mild diffuse interst itial prominence. The cardiomediastinal contours are stable. Remainder of the exam is unchanged. CONCLUSION: 1. Apparently new 7 mm nodule in the right upper lobe. CT examination may be performed on an outpatie nt basis for further evaluation. 2. Otherwise, no acute abnormality or significant interval change. Geoff Umanzor MD on March 02, 2018 at 14:34 Board Certified Radiologist. This report was verified electronically.
--- NOTE | 2018-03-03 21:39 | EKG ---
Date Performed: 03/02/2018 Time Performed: 13:33:08 PTAGE: 72 years EKG: Sinus rhythm WITH OCCASIONAL SUPRAVENTRICULAR PREMATURE COMPLEXES POSSIBLE LEFT ATRIAL ENLARGEMENT LEFT VENTRICUL AR HYPERTROPHY AND ST-T CHANGE ABNORMAL ECG INTERPRETATION BASED ON A DEFAULT AGE OF 39 YEARS NO PREVIOUS TRACING DOCTOR: Rambo Roche Interpretating Date/Time 03/03/2018 21:37:08
== END 2018-03-02 15:20 | disposition home or self-care (01) ==
LOC: PHED 12:48
DX: J44.9 Chronic obstructive pulmonary disease, unspecified (principal); R05 Cough; R94.31 Abnormal electrocardiogram [ECG] [EKG]; F41.9 Anxiety disorder, unspecified; E78.00 Pure hypercholesterolemia, unspecified; E11.9 Type 2 diabetes mellitus without complications; I10 Essential (primary) hypertension; Z87.891 Personal history of nicotine dependence
CPT/HCPCS: 71045; 80048; 83880; 84484; 85025; 93005; 94640; 94664; 96374; 99285; J2930

== ENCOUNTER 2018-03-06 00:38 | Emergency (ER) | payer OTHER ==
[~2018-03-06] VITALS: Ht 177.8 cm; Wt 81.0 kg
[2018-03-06 00:45] VITALS: BP 168/74; PULSE 105; RESP 16; O2SAT 98
[2018-03-06 01:04] VITALS: O2SAT 97
[2018-03-06] MEDS: RESP: ALBUTEROL 2.5 MG/IPRATROPIUM 0.5 MG NEB (SCH) INH ×2 (01:08→01:22)
[2018-03-06] MEDS ORDERED: SODIUM CHLORIDE 0.9% FLUSH 10 ML FLUSH IVF PRN (01:15)
[2018-03-06 01:16] LABS: AUTOMATED NEUTROPHIL # 3.5 TH/MM3 (1.8-7.7); BASOPHIL # 0.1 TH/MM3 (0-0.2); EOSINOPHIL # 0.3 TH/MM3 (0-0.4); EOSINOPHIL % 4.1 % (0.0-4.0); HEMATOCRIT 43.1 % (39.0-51.0); LYMPHOCYTE # 3.4 TH/MM3 (1.0-4.8); MEAN CELL VOLUME 85.1 FL (80.0-100.0); MEAN CORPUSCULAR HEMOGLOBIN 27.6 PG (27.0-34.0); MEAN CORPUSCULAR HGB CONC 32.4 % (32.0-36.0); MEAN PLATELET VOLUME 8.4 FL (7.0-11.0); MONO % 8.4 % (0.0-8.0); MONOCYTE # 0.7 TH/MM3 (0-0.9); NEUT % 44.5 % (16.0-70.0); PLATELET COUNT 222 TH/MM3 (150-450); RED BLOOD COUNT 5.07 MIL/MM3 (4.50-5.90); RED CELL DISTRIBUTION WIDTH 15.1 % (11.6-17.2)
[2018-03-06 01:22] LABS: CHLORIDE 106 MEQ/L (98-107); SODIUM (NA) 143 MEQ/L (136-145)
[2018-03-06 01:25] LABS: ALBUMIN 3.7 GM/DL (3.4-5.0); BICARBONATE 32.7 MEQ/L (21.0-32.0); CALCIUM 8.4 MG/DL (8.5-10.1); GLUCOSE,RANDOM 154 MG/DL (74-106)
[2018-03-06 01:26] LABS: BLOOD UREA NITROGEN 11 MG/DL (7-18)
[2018-03-06 01:28] LABS: ALT (GPT) 25 U/L (12-78)
[2018-03-06 01:29] LABS: AST (GOT) 17 U/L (15-37); GLOMERULAR FILTRATION RATE 60 ML/MIN (>89)
[2018-03-06 01:30] LABS: TOTAL BILIRUBIN ADULT 0.4 MG/DL (0.2-1.0); TOTAL PROTEIN 7.1 GM/DL (6.4-8.2)
[2018-03-06 01:31] LABS: ALKALINE PHOSPHATASE 62 U/L (45-117)
--- NOTE | 2018-03-06 01:53 | PD ---
HPI Chief Complaint: Respiratory Symptoms Time Seen by Provider: 01:01 Travel History International Travel<30 days: No Contact w/Intl Traveler<30days: No Traveled to known affect area: No History of Present Illness HPI The patient is a 72-year-old male that has a history of COPD and was short of breath tonight. He called the ambulance. He was also went to stay and given a course of prednisone but he never filled the medication. He does not smoke. He was given 125 Solu-Medrol IV in the ambulance as well as 2 albuterol treatments. He comes in feeling much better. He is oxygen dependent on 2 L nasal cannula PFS Past Medical History Arthritis: No Asthma: Yes Autoimmune Disease: No Blood Disorders: No Anxiety: Yes Depression: No Heart Rhythm Problems: No Cancer: No Cardiovascular Problems: Yes (due to copd) High Cholesterol: Yes Chemotherapy: No Chest Pain: No Congestive Heart Failure: No COPD: Yes Cerebrovascular Accident: No Diabetes: Yes (dm II) Patient Takes Glucophage: Yes Diminished Hearing: No Endocrine: No Gastrointestinal Disorders: No GERD: No Glaucoma: No Genitourinary: No Headaches: Yes Hepatitis: No Hiatal Hernia: No Heparin Induced Thrombocytopen: No Hypertension: Yes Immune Disorder: No Implanted Vascular Access Dvce: No Kidney Stones: No Musculoskeletal: No Neurologic: Yes Psychiatric: No Reproductive: No Respiratory: Yes Migraines: Yes Myocardial Infarction: No Radiation Therapy: No Renal Failure: No Seizures: No Sickle Cell Disease: No Sleep Apnea: No Thyroid Disease: No Ulcer: No Tetanus Vaccination: > 5 Years PNEUMOCCOCAL Vaccine (Year): 2 Past Surgical History Surgical History: No Previous Surgery Abdominal Surgery: No AICD: No Appendectomy: No Arteriovenous Shunt: No Cardiac Surgery: No Cholecystectomy: No Ear Surgery: No Endocrine Surgery: No Eye Surgery: Yes (cataract bina eyes) Genitourinary Surgery: No Gynecologic Surgery: No Insulin Pump: No Joint Replacement: No Neurologic Surgery: No Oral Surgery: No Pacemaker: No Thoracic Surgery: No Other Surgery: No Social History Alcohol Use: No Tobacco Use: No (quit 2012 smoked 1 ppd) Substance Use: No Allergies-Medications (Allergen,Severity, Reaction): Coded Allergies: No Known Allergies (Verified Adverse Reaction, Unknown, 03/02/18) Reported Meds & Prescriptions Reported Meds & Active Scripts Active Prednisone 20 Mg Tab 20 Mg PO DIRECTED 40 MG twice a day x 3 days, then 20 MG daily x 3 days, then 10 MG daily x 3 days Amoxicillin 500 Mg Cap 500 Mg PO TID 10 Days Ventolin Hfa 18 GM Inh (Albuterol Sulfate) 90 Mcg/Act Aer 2 Puff INH Q4H PRN Atrovent HFA 12.9 GM Inh (Ipratropium [place]) 17 Mcg/Act Aer 2 Puff INH Q6HR PRN Symbicort Inh (Budesonide/Formoterol Fumarate) 160-4.5 Mcg/Act Aero 2 Puff INH Q12HR Reported [Cholesterol Med] 20 Mg PO DAILY Lisinopril 5 Mg Tab 5 Mg PO DAILY Review of Systems Except as stated in HPI: all other systems reviewed are Neg Physical Exam Narrative GENERAL: The patient is alert, oriented 3 in slight respiratory distress. His vital signs show blood pressure 168/74 with heart rate of 105 and are otherwise normal. Oximetry is 98% on 2 L nasal cannula. SKIN: Focused skin assessment warm/dry. HEAD: Atraumatic. Normocephalic. EYES: Pupils equal and round. No scleral icterus. No injection or drainage. ENT: No nasal bleeding or discharge. Mucous membranes pink and moist. NECK: Trachea midline. No JVD. CARDIOVASCULAR: Regular rate and rhythm. No murmur appreciated. RESPIRATORY: No accessory muscle use. He has diminished breath sounds bilaterally with a few bilateral wheezes. Breath sounds equal bilaterally. GASTROINTESTINAL: Abdomen soft, non-tender, nondistended. Hepatic and splenic margins not palpable. MUSCULOSKELETAL: No obvious deformities. No clubbing. No cyanosis. No edema. NEUROLOGICAL: Awake and alert. No obvious cranial nerve deficits. Motor grossly within normal limits. Normal speech. PSYCHIATRIC: Appropriate mood and affect; insight and judgment normal. Data Data Last Documented VS Vital Signs Date Time Temp Pulse Resp B/P (MAP) Pulse Ox O2 Delivery O2 Flow Rate FiO2 03/06/18 01:04 97 Nasal Cannula 2.00 03/06/18 00:45 105 16 168/74 (105) Orders Orders Complete Blood Count With Diff (03/06/18 01:01) Comprehensive Metabolic Panel (03/06/18 01:01) B-Type Natriuretic Peptide (03/06/18 01:01) Iv Access Insert/Monitor (03/06/18 01:01) Ecg Monitoring (03/06/18 01:01) Oximetry (03/06/18 01:01) Oxygen Administration (03/06/18 01:01) Sodium Chloride 0.9% Flush (Ns Flush) (03/06/18 01:15) Albuterol-Ipratropium Neb (Duoneb Neb) (03/06/18 01:15) Chest, Pa & Lat (03/06/18 01:02) Electrocardiogram (03/06/18 01:07) Labs Laboratory Tests Test 03/06/18 01:06 White Blood Count 8.0 TH/MM3 Red Blood Count 5.07 MIL/MM3 Hemoglobin 14.0 GM/DL Hematocrit 43.1 % Mean Corpuscular Volume 85.1 FL Mean Corpuscular Hemoglobin 27.6 PG Mean Corpuscular Hemoglobin Concent 32.4 % Red Cell Distribution Width 15.1 % Platelet Count 222 TH/MM3 Mean Platelet Volume 8.4 FL Neutrophils (%) (Auto) 44.5 % Lymphocytes (%) (Auto) 42.0 % Monocytes (%) (Auto) 8.4 % Eosinophils (%) (Auto) 4.1 % Basophils (%) (Auto) 1.0 % Neutrophils # (Auto) 3.5 TH/MM3 Lymphocytes # (Auto) 3.4 TH/MM3 Monocytes # (Auto) 0.7 TH/MM3 Eosinophils # (Auto) 0.3 TH/MM3 Basophils # (Auto) 0.1 TH/MM3 CBC Comment DIFF FINAL Differential Comment Blood Urea Nitrogen 11 MG/DL Creatinine 1.40 MG/DL Random Glucose 154 MG/DL Total Protein 7.1 GM/DL Albumin 3.7 GM/DL Calcium Level 8.4 MG/DL Alkaline Phosphatase 62 U/L Aspartate Amino Transf (AST/SGOT) 17 U/L Alanine Aminotransferase (ALT/SGPT) 25 U/L Total Bilirubin 0.4 MG/DL Sodium Level 143 MEQ/L Potassium Level 3.5 MEQ/L Chloride Level 106 MEQ/L Carbon Dioxide Level 32.7 MEQ/L Anion Gap 4 MEQ/L Estimat Glomerular Filtration Rate 60 ML/MIN B-Type Natriuretic Peptide 22 PG/ML MDM Medical Decision Making Medical Screen Exam Complete: Yes Emergency Medical Condition: Yes Medical Record Reviewed: Yes Differential Diagnosis COPD with acute exacerbation, pneumonia, hypoxemia, noncompliance to medications Narrative Course It is now 0150 and the patient feels much better and wants to go home. He has been noncompliant on his prednisone that he was given to stay but he states that he will fill the prescription now and take it. His lungs show no wheezes, just diminished breath sounds. His oximetry has always been around 98% here in the emergency department. Impression: COPD with acute exacerbation Plan: The patient will fill his prescription that he was given on Thursday and follow-up with his primary care physician. If worse, he should return to the emergency department. Diagnosis Primary Impression: COPD with acute exacerbation Additional Impression: Noncompliance with medications Additional Instructions: Take the medication that you were given on Thursday, this should prevent you from getting another episode like tonight. Return to the emergency department if worse. Disposition: 01 DISCHARGE HOME Condition: Stable John Bonner MD Mar 06, 2018 01:53
--- NOTE | 2018-03-06 01:56 | RADRPT ---
EXAM DATE/TIME: 03/06/2018 01:08 [facility] COMPARISON: CHEST SINGLE AP, March 12, 2017, 7:57. CHEST PA & LAT, June 02, 2017, 14:33. CHEST SINGLE AP, March 12, 2016, 19:27. CHEST SINGLE AP, February 29, 2016, 21:52. CHEST SINGLE AP, April 10, 2017, 10:49. CH EST PA & LAT, January 14, 2018, 8:13. INDICATIONS : Shortness of breath. MEDICAL HISTORY : Hypertension. Hypercholesterolemia. Chronic obstructive pulmonary disease. SURGICAL HISTORY : None. ENCOUNTER: Initial ACUITY: 1 day PAIN SCORE: 0/10 LOCATION: Bilateral chest FINDINGS: The cardiac silhouette is enlarged in transverse diameter. There are findings of congestive heart richard lure with interstitial and alveolar opacity bilaterally. No pleural effusions are identified. CONCLUSION: 1. Cardiomegaly and findings of congestive heart failure. Jimmy Case MD on March 06, 2018 at 1:51 Board Certified Radiologist. This report was verified electronically.
[2018-03-06] MEDS ORDERED: ALBUAER3 INH (02:35)
[2018-03-06 02:40] VITALS: BP 158/88; PULSE 88; RESP 16; O2SAT 97
--- NOTE | 2018-03-06 17:02 | EKG ---
Date Performed: 03/06/2018 Time Performed: 01:20:08 PTAGE: 72 years EKG: SINUS TACHYCARDIA WITH OCCASIONAL SUPRAVENTRICULAR PREMATURE COMPLEXES POSSIBLE LEFT ATRIAL ENLARGEMENT ST DEVIATION AND MODERATE T-WAVE ABNORMALITY, CONSIDER LATERAL ISCHEMIA ABNORMAL ECG Sin ce the PREVIOUS TRACING , no significant change noted PREVIOUS TRACIN03/02/2018 13.33 DOCTOR: Rhonda Herman Interpretating Date/Time 03/06/2018 17:00:26
== END 2018-03-06 02:42 | disposition home or self-care (01) ==
LOC: PHED 00:38
DX: J44.1 Chronic obstructive pulmonary disease with (acute) exacerbation (principal); R00.0 Tachycardia, unspecified; F41.9 Anxiety disorder, unspecified; E78.00 Pure hypercholesterolemia, unspecified; E11.9 Type 2 diabetes mellitus without complications; I10 Essential (primary) hypertension; Z99.81 Dependence on supplemental oxygen; Z91.14 Patient's other noncompliance with medication regimen
CPT/HCPCS: 71046; 80053; 83880; 85025; 93005; 94640; 94664; 99285